=== PATIENT | male | born 1940 | race Caucasian/White ===

== ENCOUNTER 2020-06-25 14:06 | Observation (INO) | payer MEDICARE ==
[2020-06-25 16:41] VITALS: BMI 30.1
[2020-06-25] MEDS ORDERED: Pramipexole Di-HCl 0.25 MG TAB PO SCH (21:00)
[2020-06-25] MEDS ORDERED: Carbidopa/Levodopa 25-250 mg Tablet PO SCH ×2 (21:00→23:30)
[2020-06-25 21:43] LABS: #Eosinphils 0.2 thou/uL (0.0-0.7); #Lymphocytes 1.4 thou/uL (1.20-3.40); #Monocytes 0.5 thou/uL (0.11-0.59); #Neutrophils 3.6 thou/uL (1.40-6.50); %Basophils 0.6 % (0.0-1.0); %Eosinophils 3.7 % (0.0-10.0); %Lymphocytes 24.6 % (21.0-51.0); %Monocytes 9.3 % (0.0-10.0); %Neutrophils 61.8 % (42.0-75.0); Mean Corpuscular HGB CONC 33.8 g/dL (32.0-36.0); Mean Corpuscular Volume 94.6 fL (78.0-98.0); Mean Platelet Volume 7.6 fL (7.4-10.4); Platelet Count 181 thou/uL (130-400); RBC Distribution Width 11.9 % (11.5-14.5); Red Blood Cell (RBC) Count 4.39 mill/uL (4.70-6.10); White Blood Cell (WBC) Count 5.9 thou/uL (4.8-10.8)
[2020-06-25 22:03] LABS: Anion Gap 10 mmol/L (10-20); BUN (Urea Nitrogen) 26 mg/dL (8.4-25.7); Bilirubin, Total 0.3 mg/dL (0.2-1.2); Calc. Creatinine Clearance 111 mL/min (70-130); Calcium 8.6 mg/dL (7.8-10.44); Carbon Dioxide 23 mmol/L (23-31); Chloride 109 mmol/L (98-107); Estimated GFR-MDRD Greater than 90; Globulin 2.6 g/dL (2.4-3.5); Glucose 138 mg/dL (83-110); Potassium 3.9 mmol/L (3.5-5.1); Protein, Total 6.6 g/dL (5.8-8.1); Sodium 138 mmol/L (136-145)
[2020-06-25 22:04] LABS: ALT (SGPT) 11 U/L (8-55); AST (SGOT) 12 U/L (5-34); Alkaline Phosphatase 113 U/L (40-110); Magnesium 2.1 mg/dL (1.6-2.6)
[2020-06-25] MEDS ORDERED: Gabapentin 300 MG CAP PO SCH (22:30)
--- NOTE | 2020-06-25 23:34 | PDOC.HHP ---
Hospitalist HPI - History of Present Illness Syncope History of Present Illness: This is a 80-year-old male patient with a history of Parkinson's disease who presents as a transfer from [facility] on account of syncope. Patient was in his usual state of health when earlier in the day he got out of b ed and walked to his daughter and before he could notice was on the floor having syncopized. This was very brief, and witnessed and he got up almost immediately. He denied any associated chest pain, palpitation prior to the fall. He did note having had a similar incident about 2 weeks ago. Given these falls he presented to the ED at [facility] where he was evaluated. After his first syncope and event monitoring at home was placed on him however this was interrogated today without any abnormal or concerning arrhythmias noted. He had a head CT which showed no acute intracranial abnormality, only cerebral atrophy with small vessel ischemic white matter changes. Chest x-ray showed no acute cardiopulmonary events. CBC and BMP and Keppra, essential all within normal limits. His vital signs were also within normal limits. Given his recurrent syncope decision was made to have him observed and monitored he was sent here for further evaluation. On arrival, repeat vitals and labs were all within normal limits. Hospitalist ROS - Review of Systems Constitutional: denies: fever, sweats Cardiovascular: denies: chest pain, palpitations, orthopnea, paroxysmal noc. dyspnea Gastrointestinal: denies: nausea, vomiting, abdominal pain, diarrhea Genitourinary: denies: dysuria, frequency, incontinence, hematuria Musculoskeletal: denies: neck pain, shoulder pain, arm pain, back pain Neurological: denies: weakness, numbness, incoordination, change in speech, confusion Hospitalist History - Past Medical History Other Medical History: Parkinson's disease. - Past Surgical History Other Surgical History: None of significance - Social History Alcohol: reports: Occassional Living Situation: With Family - Exam General Appearance: awake alert Eye: PERRL, anicteric sclera ENT: normocephalic atraumatic, moist mucosa Neck: supple, no JVD Heart: RRR, no murmur, no gallops, no rubs, normal peripheral pulses Respiratory: no wheezes, no rales, no ronchi, no tachypnea Gastrointestinal: soft, non-tender, non-distended, normal bowel sounds Extremities: no cyanosis, no clubbing, no edema Skin: normal turgor Neurological: cranial nerve grossly intact, normal sensation to touch Musculoskeletal: normal tone, normal strength, no muscle wasting Psychiatric: A&O x 3 Hospitalist Results - Labs Result Diagrams: 06/25/20 21:17 06/26/20 08:10 Lab results: WBC 5.9 thou/uL (4.8-10.8) 06/25/20 21:17 Hgb 14.0 g/dL (14.0-18.0) 06/25/20 21:17 Hct 41.6 % (42.0-52.0) L 06/25/20 21:17 MCV 94.6 fL (78.0-98.0) 06/25/20 21:17 Plt Count 181 thou/uL (130-400) 06/25/20 21:17 Neutrophils % 61.8 % (42.0-75.0) 06/25/20 21:17 Sodium 138 mmol/L (136-145) 06/25/20 21:17 Potassium 3.9 mmol/L (3.5-5.1) 06/25/20 21:17 Chloride 109 mmol/L (98-107) H 06/25/20 21:17 Carbon Dioxide 23 mmol/L (23-31) 06/25/20 21:17 BUN 26 mg/dL (8.4-25.7) H 06/25/20 21:17 Creatinine 0.81 mg/dL (0.7-1.3) 06/25/20 21:17 Glucose 138 mg/dL (83-110) H 06/25/20 21:17 Calcium 8.6 mg/dL (7.8-10.44) 06/25/20 21:17 Total Bilirubin 0.3 mg/dL (0.2-1.2) 06/25/20 21:17 AST 12 U/L (5-34) 06/25/20 21:17 ALT 11 U/L (8-55) 06/25/20 21:17 Alkaline Phosphatase 113 U/L (40-110) H 06/25/20 21:17 Serum Total Protein 6.6 g/dL (5.8-8.1) 06/25/20 21:17 Albumin 4.0 g/dL (3.4-4.8) 06/25/20 21:17 Hospitalist H&P A/P - Plan Plan: This is a 80-year-old male patient with a history of Parkinson's disease presenting with recurrent syncope of unclear etiology. Recurrent syncope Etiology unclear May be related to orthostatic hypotensioncheck orthostatic vital signs. Also possibility of multisystem atrophy in the setting of Parkinson's disease We will monitor on telemetry overnight for abnormal rhythms. We will consider echocardiogram in a.m. Possible cardiology evaluation in a.m. Parkinson's disease Continue on carbidopa/levodopa Also on pramipexole Depression Continue duloxetine VT prophylaxisnone CODE STATUSfull code
[2020-06-26] MEDS ORDERED: DULoxetine 60 MG CAP PO SCH ×3 (00:15→21:00)
[2020-06-26 08:50] LABS: Anion Gap 13 mmol/L (10-20); BUN (Urea Nitrogen) 21 mg/dL (8.4-25.7); Calc. Creatinine Clearance 114 mL/min (70-130); Calcium 8.9 mg/dL (7.8-10.44); Carbon Dioxide 27 mmol/L (23-31); Chloride 106 mmol/L (98-107); Estimated GFR-MDRD Greater than 90; Glucose 104 mg/dL (83-110); Potassium 4.3 mmol/L (3.5-5.1); Sodium 142 mmol/L (136-145)
[2020-06-26] MEDS ORDERED: Losartan 25 MG TAB PO SCH (09:00)
[2020-06-26] MEDS ORDERED: Atorvastatin Calcium 20 MG TAB PO SCH (09:00)
[2020-06-26] MEDS ORDERED: Carbidopa/Levodopa 25-250 mg Tablet PO SCH ×2 (09:00→12:00)
[2020-06-26] MEDS ORDERED: Pramipexole Di-HCl 0.25 MG TAB PO SCH (09:00)
[2020-06-26] MEDS ORDERED: FLU VACC QS2020-21(65YR UP)/PF 240 MCG/0.7 ML SYRINGE IM ONE (09:00)
[2020-06-26] MEDS ORDERED: Gabapentin 300 MG CAP PO SCH (09:00)
[2020-06-26] MEDS: Fludrocortisone Acetate 0.1 MG TAB PO SCH (09:12)
--- NOTE | 2020-06-26 09:45 | PDOC.HOSPP ---
- Subjective Encounter Date: 06/26/20 (f/u syncope) Encounter Time: 09:44 Subjective: Pt admitted yesterday for syncope. He denies any prodromal sx. he denies any concerns today - states he is feelng well. He does note being off fludrocortisone for a few days and not taking it that often. He denies any cp/sob/n/v/abd pain. He sees Dr. Cooper as an outpatient. - Objective Vital Signs & Weight: Vital Signs (12 hours) Temp Pulse Resp BP Pulse Ox 06/26/20 07:40 97.5 F L 79 18 199/96 H 95 06/26/20 04:01 98.6 F 72 18 172/96 H 94 L Weight Weight 234 lb I&O: 06/25/20 06/26/20 06/27/20 06:59 06:59 06:59 Intake Total 140 Output Total 280 Balance -140 Result Diagrams: 06/25/20 21:17 06/26/20 08:10 EKG Reviewed by me: Yes (tele - sinus 70-80's) Hospitalist ROS - Medication Medications: Active Medications Generic Name Dose Route Start Last Admin Trade Name Freq PRN Reason Stop Dose Admin Atorvastatin Calcium 20 mg 06/26/20 09:00 06/26/20 09:12 Atorvastatin Calcium 20 Mg Tab PO 20 mg DAILY JAYCE Administration Carbidopa/Levodopa 1.5 tab 06/26/20 09:00 06/26/20 09:12 Carbidopa/Levodopa 25-250 Mg Tablet PO 1.5 tab QAM JAYCE Administration Fludrocortisone Acetate 0.1 mg 06/26/20 09:00 06/26/20 09:12 Fludrocortisone Acetate 0.1 Mg Tab PO 0.1 mg DAILY JAYCE Administration Gabapentin 600 mg 06/26/20 09:00 06/26/20 09:32 Gabapentin 300 Mg Cap PO 600 mg TID JAYCE Administration Losartan Potassium 100 mg 06/26/20 09:00 06/26/20 09:12 Losartan 25 Mg Tab PO 100 mg DAILY JAYCE Administration Pramipexole Dihydrochloride 0.25 mg 06/26/20 09:00 06/26/20 09:10 Pramipexole Di-Hcl 0.25 Mg Tab PO 0.25 mg BID JAYCE Administration - Exam General Appearance: NAD Heart: RRR, no murmur Respiratory: CTAB, no wheezes Gastrointestinal: soft, non-tender, non-distended, normal bowel sounds Extremities: no cyanosis, no clubbing, no edema Psychiatric: normal affect Hosp A/P (1) Syncope Code(s): R55 - SYNCOPE AND COLLAPSE Status: Acute (2) Orthostatic hypotension Code(s): I95.1 - ORTHOSTATIC HYPOTENSION Status: Chronic (3) Parkinsons disease Code(s): G20 - PARKINSON'S DISEASE Status: Chronic (4) Hypertension Code(s): I10 - ESSENTIAL (PRIMARY) HYPERTENSION Status: Chronic (5) Dyslipidemia Code(s): E78.5 - HYPERLIPIDEMIA, UNSPECIFIED Status: Chronic - Plan syncope - suspect orthostatic hypotension - recheck orthostatic VS this morning - cardiology consult as pt is on losartan at night and fludrocortisone in the morning - Neurology consult to eval for another explanation such as related to parkinsons disease HTN - elevated bp this morning - monitor, recheck VS Parkinsons disease - continue usual home meds Dyslipidemia - continue statin dvt prophy - ambulatory gi prophy - not indicated code status full reviewed plan of care with patient with his son on speaker phone (by patient choice), who demonstrate understanding and agree with plan. no questions or further needs at end of eval.
[2020-06-26 11:22] VITALS: TEMP 98.4
--- NOTE | 2020-06-26 12:41 | CON ---
DATE OF CONSULTATION: 06/26/2020 CONSULTING PHYSICIAN: Hospitalist Services. IMPRESSION: Parkinson disease with autonomic instability. PLAN: Restart Florinef 0.1 mg a day. The patient can be discharged to home. HISTORY OF PRESENT ILLNESS: Mr. Rabago is a 80-year-old man who was followed by Dr. Almanzar at [facility] for his Parkinson disease. He has had symptoms dating back about 5 years. He has also been treated for hypertension and is on losartan. He was noted to be orthostatic by Neurology a few months ago. He was started on Florinef. He was doing well until recently. He forgot to take his medicine with him on a trip and did not take his Florinef for more than a week. He has gotten up from a couch and was walking across the room when he suddenly got lightheaded and collapsed. He has had a similar episode in the past. He was admitted for evaluation. He had a CT scan of the brain done, which was normal. His lab work was in normal limits. He was noted to have a 70-mm drop in blood pressure with orthostatic measurements. PAST MEDICAL HISTORY: Hypertension, Parkinson's. ALLERGIES: NONE. SOCIAL HISTORY: No tobacco or alcohol abuse. FAMILY HISTORY: Noncontributory. MEDICATIONS: List was reviewed. REVIEW OF SYSTEMS: Ten-system review of systems is otherwise negative. PHYSICAL EXAMINATION: GENERAL: He is a well-nourished gentleman, lying in bed, in no distress. VITAL SIGNS: Reviewed. HEENT: Pupils equal and reactive. Conjunctivae clear. Mucous membranes moist. NECK: Supple. No lymphadenopathy. ABDOMEN: Soft and nontender. EXTREMITIES: No cyanosis or edema. SKIN: Clear. NEUROLOGIC: Alert and appropriate. His speech is fluent and clear. Cranial nerves were intact. Motor exam showed good strength bilaterally. No tremor was noted. His rapid alternating movements were quite smooth. He can walk independently. Sensation was intact to light touch. LABORATORY DATA: EKG shows a sinus rhythm. SUMMARY: This elderly man with Parkinson's and autonomic instability. He has been documented to have issues in the past and was treated with Florinef until he forgot to take his medication. I do not see any need for further workup. He can be discharged today. Job ID: [id number]
[2020-06-26 13:40] VITALS: BP 190/95
[2020-06-26] MEDS ORDERED: Potassium Chloride 20 MEQ TAB PO SCH (14:15)
[2020-06-26] MEDS ORDERED: Sodium Chloride 0.9% 500 ML IV SCH (14:15)
--- NOTE | 2020-06-26 14:57 | CON ---
DATE OF CONSULTATION: 06/26/2020 REASON FOR CONSULTATION: Syncopal episode. PRIMARY MUD ENGINEER: Quique Cooper MD HISTORY OF PRESENT ILLNESS: Mr. Blaine Rabago is a 80-year-old gentleman with history of Parkinson disease with orthostatic hypotension. The patient was out in his garage yesterday when he was opening up a refrigerator freezer door and then felt very weak and then lost consciousness promptly. He was sent to [facility] Emergency Room, then transferred here for evaluation and observation. The patient has been noted to have severe orthostatic hypotension during this admission as noted by Dr. Souza. PAST MEDICAL HISTORY: 1. Parkinson disease. 2. Orthostatic hypotension. 3. Hypertension. MEDICATIONS: At home: 1. Losartan 100 mg a day. 2. Atorvastatin 20 mg a day. 3. Carbidopa and levodopa. 4. Gabapentin. 5. Fludrocortisone, but he has not been taking that for at least a week. 6. Aspirin 81 mg a day. ALLERGIES: NONE KNOWN. SOCIAL HISTORY: Has a who is very supportive of him. She is in the room. Also, the son who was on the phone. PHYSICAL EXAMINATION: VITAL SIGNS: Blood pressure earlier was 199/96 at 7:40 a.m., later was 110/62 sitting and 99/58 standing. NECK: Veins normal. Carotid normal upstrokes. LUNGS: Clear. CARDIAC: Normal S1. Normal S2. ABDOMEN: Soft, nontender. EXTREMITIES: No clubbing or cyanosis. There is no edema. LABORATORY DATA: Echocardiogram is normal. The patient's monitor, which apparently showed no dysrhythmias. ASSESSMENT: 1. Orthostatic hypotension. 2. Parkinson disease. PLAN: 1. Give us normal saline bolus. 2. Reduce losartan to 50 mg a day. 3. Okay to be discharged home after the bolus. 4. Follow up with Dr. Cooper. Job ID: [id number]
--- NOTE | 2020-06-26 22:39 | DIS ---
DATE OF ADMISSION: 06/25/2020 DATE OF DISCHARGE: 06/26/2020 CONSULTANTS: 1. Dr. Tinsley of Cardiology. 2. Dr. Souza of Neurology. MEDICATIONS: Reconciled at discharge. Discontinue medication: Losartan 100 mg. New medication: Losartan 50 mg once daily. Medications to continue: 1. Aspirin 81 mg daily. 2. Atorvastatin 20 mg at bedtime. 3. Carbidopa/levodopa one tablet four times daily, 25-250 mg. 4. Cymbalta 60 mg daily. 5. Fludrocortisone 0.1 mg daily. 6. Gabapentin 600 mg t.i.d. 7. Pramipexole 0.25 mg b.i.d. FINAL DIAGNOSIS: Syncope secondary to orthostatic hypotension. SECONDARY DIAGNOSES: 1. Parkinson disease. 2. Hypertension. 3. Dyslipidemia. 4. Known history of orthostatic hypotension. HISTORY OF PRESENT ILLNESS: Mr. Rabago is a 80-year-old male with the above medical problems, who presented to [facility] secondary to passing out. The patient reports that he was standing in the garage, denies any prodrome of symptoms and went down to the floor. He denies any problems with ambulation with his medications. Please see history and physical for more details. HOSPITAL COURSE: The patient was monitored on telemetry and maintained a sinus rhythm with the rates in the 70s and 80s. Yesterday, his orthostatic blood pressures were positive, these were repeated today and remained positive. The patient does have known orthostatic hypotension, however, has not had problems with this in the past by his report. He is prescribed fludrocortisone and states that he does not take it very often and for certain has been off it over the past few days. He was evaluated by Cardiology with recommendation to decrease the losartan dose and continue the fludrocortisone. Followup will be needed with Dr. Cooper in the outpatient setting. He was also evaluated by Dr. Souza of Neurology, who recommended continuing the fludrocortisone and follow up with his outpatient neurologist. The patient is overall feeling well, does meet criteria for discharge to home. PHYSICAL EXAMINATION: Please see the note on chart. PERDOMO FINDINGS AND TEST RESULTS: CBC: 5.9, 14.0, 41.6, 181. Chemistry: 142, 4.3, 106, 27, 21, 0.79, 104. Total bilirubin 0.3, AST 12, ALT 11, alkaline phosphatase 113, total protein 6.6, albumin 4. Echocardiogram shows an EF of 55% to 60%, no evidence of MR, trace TR. I reviewed with patient this hospitalization, the importance of followup and return for care precautions. FOLLOWUP: Follow up with Dr. Cooper in the next few weeks to review this hospitalization, medication changes, blood pressure, and address any other health needs. Follow up with the outpatient neurologist as needed. Follow up with primary care also as needed. DIET: Heart healthy. ACTIVITY: As tolerated with caution due to the known orthostatic hypotension. CODE STATUS: Full. DISCHARGE DISPOSITION: Home. Total time coordinating discharge is 35 minutes. Job ID: [id number] MTDD
[2020-06-27] MEDS ORDERED: Losartan 25 MG TAB PO SCH (09:00)
== END 2020-06-26 16:21 | disposition home or self-care (01) ==
LOC: INTOOBSV 14:06 → 2NO 14:06
PROVIDERS: ADMIT Student in an Organized Health Care Education/Training Program; ATTEND Student in an Organized Health Care Education/Training Program
DX: I95.1 Orthostatic hypotension (principal); G20 Parkinson's disease; I10 Essential (primary) hypertension; E78.5 Hyperlipidemia, unspecified; F32.9 Major depressive disorder, single episode, unspecified; Z79.82 Long term (current) use of aspirin; Z79.899 Other long term (current) drug therapy
CPT/HCPCS: 80048; 80053; 83735; 85025; 93306; G0378 ×2; 36415

== ENCOUNTER 2020-10-24 20:15 | Emergency (ER) | payer MEDICARE ==
[2020-10-24] MEDS ORDERED: Morphine 4 MG/ML VIAL ONE (21:26)
--- NOTE | 2020-10-24 21:32 | CT ---
CT ABDOMEN AND PELVIS WITHOUT CONTRAST: Comparison: 01-03-17 History: Abdominal pain. Technique: Multiple contiguous axial images were obtained in a CT of the abdomen and pelvis without c ontrast. Sagittal and coronal reformats were performed. FINDINGS: There are nonobstructing calcifications in the bilateral kidneys measuring up to 10 mm on the left an d 7 mm on the right. No calcifications are seen in either ureter or within the urinary bladder. No hy dronephrosis is seen. There is an exophytic hypodensity emanating from the both kidneys which are sub centimeter in size and likely represents a small cysts. The liver, gallbladder, adrenal glands, splee n and pancreas are unremarkable although evaluation is limited without IV contrast. No free air, free fluid, or stranding changes are seen in the abdomen or pelvis. Scattered diverticul a are seen in the colon. The small bowel is normal in caliber. Atherosclerotic calcifications are seen in the aorta. No abdominal or pelvic lymph adenopathy are see n. Degenerative and post surgical changes are seen in the spine. There is effusion in the sacroiliac marisel nts. The visualized inferior thorax and abdominal wall soft tissues are unremarkable. IMPRESSION: 1. Bilateral nonobstructing kidney stones. 2. Bilateral renal cysts. POS: EAA
[2020-10-24 21:49] LABS: #Eosinphils 0.2 thou/uL (0.0-0.7); #Lymphocytes 1.4 thou/uL (1.20-3.40); #Monocytes 0.6 thou/uL (0.11-0.59); #Neutrophils 6.3 thou/uL (1.40-6.50); %Basophils 0.4 % (0.0-1.0); %Lymphocytes 16.3 % (21.0-51.0); %Monocytes 6.8 % (0.0-10.0); %Neutrophils 74.6 % (42.0-75.0); Hemoglobin 13.9 g/dL (14.0-18.0); Mean Corpuscular HGB CONC 34.6 g/dL (32.0-36.0); Mean Corpuscular Hemoglobin 33.3 pg (27.0-31.0); Mean Corpuscular Volume 96.2 fL (78.0-98.0); Mean Platelet Volume 6.9 fL (7.4-10.4); Platelet Count 204 thou/uL (130-400); RBC Distribution Width 11.8 % (11.5-14.5); Red Blood Cell (RBC) Count 4.15 mill/uL (4.70-6.10); White Blood Cell (WBC) Count 8.5 thou/uL (4.8-10.8)
[2020-10-24 22:09] LABS: ALT (SGPT) Less than 7 U/L (8-55); AST (SGOT) 23 U/L (5-34); Albumin 4.1 g/dL (3.4-4.8); Alkaline Phosphatase 106 U/L (40-110); Anion Gap 14 mmol/L (10-20); BUN (Urea Nitrogen) 24 mg/dL (8.4-25.7); Bilirubin, Total 0.3 mg/dL (0.2-1.2); CK (CPK) 78 U/L (30-200); Calc. Creatinine Clearance 0 mL/min (70-130); Calcium 9.2 mg/dL (7.8-10.44); Carbon Dioxide 26 mmol/L (23-31); Chloride 107 mmol/L (98-107); Globulin 2.9 g/dL (2.4-3.5); Glucose 115 mg/dL (83-110); Lipase 10 U/L (8-78); Potassium 4.5 mmol/L (3.5-5.1); Sodium 142 mmol/L (136-145)
[2020-10-24 23:26] LABS: Bilirubin Negative (Negative); Blood, Urine 3+ (Negative); Clarity Clear (Clear); Glucose, Urine (Dipstick) Normal (Negative); Ketone, Urine Negative (Negative); Leukocyte Negative Leu/uL (Negative); Nitrite Negative (Negative); Protein, Urine (Dipstick) Negative (Neg-Trace); RBC/HPF Greater than 50 HPF (0-3); Specific Gravity, Urine 1.021 (1.002-1.036); Squamous Epithelial None Seen HPF (0-3); Urobilinogen Normal mg/dL (Less than 2); WBC/HPF 0-3 HPF (0-3); pH, Urine 6.5 (5.0-9.0)
[2020-10-24 23:27] LABS: Bacteria/HPF Rare-Few HPF (None Seen)
[2020-10-24] MEDS ORDERED: hydrALAZINE 10 MG TAB PO SCH (23:45)
== END 2020-10-25 00:45 | disposition home or self-care (01) ==
LOC: ERS 20:15
DX: R31.9 Hematuria, unspecified (principal); I10 Essential (primary) hypertension; G20 Parkinson's disease; E78.00 Pure hypercholesterolemia, unspecified; Z79.82 Long term (current) use of aspirin; Z79.899 Other long term (current) drug therapy
CPT/HCPCS: 36415; 74176; 80053; 81003; 81015; 82550; 83690; 85025; 87086; J2270

== ENCOUNTER 2020-10-25 16:20 | Inpatient (IN) | payer MEDICARE ==
[2020-10-25 18:02] LABS: Bilirubin Negative (Negative); Blood, Urine Large (Negative); Glucose, Urine (Dipstick) 100 mg/dL (Negative); Ketone, Urine Negative (Negative); Leukocyte Negative (Negative); Nitrite Negative (Negative); Protein, Urine (Dipstick) > or equal to 300 mg/dL (Neg-Trace); Urobilinogen 0.2 mg/dL (Less than 2); pH, Urine 5.5 (5.0-9.0)
[2020-10-25 18:24] LABS: Clarity Turbid (Clear); Specific Gravity, Urine 1.023 (1.002-1.036)
[2020-10-25 18:25] LABS: Bacteria/HPF None Seen HPF (None Seen); RBC/HPF Greater than 50 HPF (0-3); Squamous Epithelial 0-3 HPF (0-3); WBC/HPF 0-3 HPF (0-3)
[2020-10-25] MEDS ORDERED: Morphine 4 MG/ML VIAL ONE (18:41)
[2020-10-25 18:59] LABS: #Eosinphils 0.2 thou/uL (0.0-0.7); #Lymphocytes 1.2 thou/uL (1.20-3.40); #Monocytes 0.7 thou/uL (0.11-0.59); #Neutrophils 6.2 thou/uL (1.40-6.50); %Basophils 0.4 % (0.0-1.0); %Lymphocytes 14.1 % (21.0-51.0); %Monocytes 8.8 % (0.0-10.0); %Neutrophils 74.8 % (42.0-75.0); Hemoglobin 13.5 g/dL (14.0-18.0); Mean Corpuscular HGB CONC 33.4 g/dL (32.0-36.0); Mean Corpuscular Hemoglobin 31.8 pg (27.0-31.0); Mean Corpuscular Volume 95.4 fL (78.0-98.0); Mean Platelet Volume 9.3 fL (7.4-10.4); Platelet Count 219 thou/uL (130-400); RBC Distribution Width 12.1 % (11.5-14.5); Red Blood Cell (RBC) Count 4.24 mill/uL (4.70-6.10); White Blood Cell (WBC) Count 8.4 thou/uL (4.8-10.8)
[2020-10-25 20:59] LABS: Albumin 4.2 g/dL (3.4-4.8)
[2020-10-25 21:02] LABS: Chloride 108 mmol/L (98-107); Potassium 4.7 mmol/L (3.5-5.1); Sodium 142 mmol/L (136-145)
[2020-10-25 21:03] LABS: Calcium 9.3 mg/dL (7.8-10.44)
[2020-10-25 21:04] LABS: Globulin 2.8 g/dL (2.4-3.5); Glucose 115 mg/dL (83-110)
[2020-10-25 21:05] LABS: Anion Gap 14 mmol/L (10-20); Carbon Dioxide 25 mmol/L (23-31)
[2020-10-25 21:06] LABS: Bilirubin, Total 0.4 mg/dL (0.2-1.2)
[2020-10-25 21:07] LABS: Alkaline Phosphatase 105 U/L (40-110); Calc. Creatinine Clearance 0 mL/min (70-130)
[2020-10-25 21:08] LABS: BUN (Urea Nitrogen) 22 mg/dL (8.4-25.7)
[2020-10-25 21:09] LABS: AST (SGOT) 21 U/L (5-34)
[2020-10-25 21:10] LABS: ALT (SGPT) Less than 7 U/L (8-55)
[2020-10-26 00:07] VITALS: BMI 31.6
[2020-10-26] MEDS ORDERED: Acetaminophen 650 MG Suppository PR PRN (01:11)
--- NOTE | 2020-10-26 01:35 | PDOC.HHP ---
Hospitalist HPI ED Course: ADMISSION DATE: 10/26/2020 TIME OF ASSESSMENT: 0100 PRIMARY CARE PHYSICIAN: Dr. Miranda CHIEF COMPLAINT: Urine retention and hematuria HPI: This is a 80-year-old gentleman who presents to the emergency department with complaints of Brown catheter does not seem to be draining properly. He had this placed yesterday here in the emergency department after presenting with urinary retention and hematuria. He apparently has been constipated for several days and was straining while having a bowel movement yesterday morning and noted that though he felt like emptying his bladder he was unable to urinate. He began to experience suprapubic discomfort with the inability to empty his bladder throughout the day which prompted him to seek medical attention. He called EMS and while waiting for them to arrive he was able to release some urine which provided some relief and noted multiple blood clots and what he describes as gelatinous bloody material. Patient states he does not follow with a urologist. He was set up to see 1 as an outpatient and had a Brown catheter placed. For his pain he was given morphine 4 mg IV. He had a CT of the abdomen and pelvis which demonstrated bilateral nonobstructing renal calculi and bilateral renal cysts without any evidence of bladder or prostate masses or obstruction. For that reason he was cleared to be discharged home. He returned today due to recurring symptoms. Reports having a significant amount of discomfort with irrigation being done in the emergency department however since her rate was decreased his discomfort has eased. The hematuria has started to her improve. He denies any complaints at this present time. He has had similar symptoms like this in the past after undergoing radical prostatectomy in 2004. He had been treated with radiation and chemotherapy followed by surgery. ED COURSE: Labs and in the emergency department showed a white cell count of 8.4, hemoglobin 13.5, hematocrit 40.5. Platelets 119. Neutrophils 74.8%. BUN 22, creatinine 0.82, GFR greater than 90, glucose 115, LFTs normal. Urinalysis was done showing red turbid appearing urine with 300 protein, 100 glucose, large blood with greater than 50 red blood cells. He was started on IV antibiotics with Levaquin 750 mg IV. He received 2 mg of morphine IV for his pain. Case was discussed with Dr. Cassidy who advised continuous bladder irrigation with plans to see the patient in the morning. Allergies/Adverse Reactions: Allergy/AdvReac Type Severity Reaction Status Date / Time No Known Allergies Allergy Verified 10/26/20 00:01 Home Medications: Medication Instructions Recorded Confirmed Type Atorvastatin Calcium [Lipitor] 40 mg PO QPM 05/10/16 10/26/20 History Carbidopa/Levodopa 1 tab PO QID 05/10/16 10/26/20 History [Carbidopa-Levodopa 25-250 Tab] Aspirin [Ecotrin Low Strength] 81 mg PO QPM 06/25/20 10/26/20 History DULoxetine [Cymbalta] 60 mg PO QPM 06/25/20 10/26/20 History Fludrocortisone Acetate 0.1 mg PO QAM 06/25/20 06/25/20 History Gabapentin 600 mg PO BID 06/25/20 10/26/20 History Pramipexole Di-HCl [Mirapex] 0.25 mg PO TID 06/25/20 10/26/20 History Losartan [Cozaar] 50 mg PO DAILY tab 06/26/20 Rx Past History: PAST MEDICAL HISTORY: 1. History of prostate cancer 2. Parkinson's disease 3. Spinal stenosis 4. Hypertension 5. Hyperlipidemia PAST SURGICAL HISTORY: 1. Radical prostatectomy 2. Back surgery 3. Pars plana vitrectomy and membrane peel, right eye SOCIAL HISTORY: Patient denies any tobacco use, alcohol consumption or drug use. Lives at home with his family. FAMILY HISTORY: Noncontributory Hospitalist Exam Vitals: Vital Signs (12 hours) Temp Pulse Resp BP Pulse Ox 10/25/20 23:31 98 F 82 16 154/96 H 96 Weight Weight 240 lb 2 oz General Appearance: NAD, awake alert Eye: PERRL, anicteric sclera ENT: normocephalic atraumatic, no oropharyngeal lesions Neck: supple, no lymphadenopathy Heart: RRR, no murmur, no gallops, no rubs, normal peripheral pulses Respiratory: CTAB, no wheezes, no rales, no ronchi, normal chest expansion Gastrointestinal: soft, non-tender, non-distended, normal bowel sounds Extremities: no edema Skin: normal turgor, no lesions, no rashes Neurological: cranial nerve grossly intact, normal sensation to touch Musculoskeletal: normal tone, normal strength, no muscle wasting Psychiatric: normal affect, normal behavior, A&O x 3 Hospitalist Results Result Diagrams: 10/25/20 18:48 10/25/20 20:37 Lab results: Laboratory Last Values WBC 8.4 thou/uL (4.8-10.8) 10/25/20 18:48 RBC 4.24 mill/uL (4.70-6.10) L 10/25/20 18:48 Hgb 13.5 g/dL (14.0-18.0) L 10/25/20 18:48 Hct 40.5 % (42.0-52.0) L 10/25/20 18:48 MCV 95.4 fL (78.0-98.0) 10/25/20 18:48 MCH 31.8 pg (27.0-31.0) H 10/25/20 18:48 MCHC 33.4 g/dL (32.0-36.0) 10/25/20 18:48 RDW 12.1 % (11.5-14.5) 10/25/20 18:48 Plt Count 219 thou/uL (130-400) 10/25/20 18:48 MPV 9.3 fL (7.4-10.4) 10/25/20 18:48 Neutrophils % 74.8 % (42.0-75.0) 10/25/20 18:48 Lymphocytes % 14.1 % (21.0-51.0) L 10/25/20 18:48 Monocytes % 8.8 % (0.0-10.0) 10/25/20 18:48 Eosinophils % 2.0 % (0.0-10.0) 10/25/20 18:48 Basophils % 0.4 % (0.0-1.0) 10/25/20 18:48 Neutrophils # 6.2 thou/uL (1.40-6.50) 10/25/20 18:48 Lymphocytes # 1.2 thou/uL (1.20-3.40) 10/25/20 18:48 Monocytes # 0.7 thou/uL (0.11-0.59) H 10/25/20 18:48 Eosinophils # 0.2 thou/uL (0.0-0.7) 10/25/20 18:48 Basophils # 0.0 thou/uL (0.0-0.2) 10/25/20 18:48 Sodium 142 mmol/L (136-145) 10/25/20 20:37 Potassium 4.7 mmol/L (3.5-5.1) 10/25/20 20:37 Chloride 108 mmol/L (98-107) H 10/25/20 20:37 Carbon Dioxide 25 mmol/L (23-31) 10/25/20 20:37 Anion Gap 14 mmol/L (10-20) 10/25/20 20:37 BUN 22 mg/dL (8.4-25.7) 10/25/20 20:37 Creatinine 0.82 mg/dL (0.7-1.3) 10/25/20 20:37 Estimated GFR (MDRD) Greater than 90 10/25/20 20:37 Glucose 115 mg/dL (83-110) H 10/25/20 20:37 Calcium 9.3 mg/dL (7.8-10.44) 10/25/20 20:37 Total Bilirubin 0.4 mg/dL (0.2-1.2) 10/25/20 20:37 AST 21 U/L (5-34) 10/25/20 20:37 ALT Less than 7 U/L (8-55) L 10/25/20 20:37 Alkaline Phosphatase 105 U/L (40-110) 10/25/20 20:37 Serum Total Protein 7.0 g/dL (5.8-8.1) 10/25/20 20:37 Albumin 4.2 g/dL (3.4-4.8) 10/25/20 20:37 Globulin 2.8 g/dL (2.4-3.5) 10/25/20 20:37 Albumin/Globulin Ratio 1.5 g/dL (1.2-2.2) 10/25/20 20:37 Urine Color Red (Yellow) A 10/25/20 Unknown Urine Clarity Turbid (Clear) A 10/25/20 Unknown Urine pH 5.5 (5.0-9.0) 10/25/20 Unknown Ur Specific [place] 1.023 (1.002-1.036) 10/25/20 Unknown Urine Protein > or equal to 300 mg/dL (Neg-Trace) A 10/25/20 Unknown Urine Glucose (UA) 100 mg/dL (Negative) A 10/25/20 Unknown Urine Ketones Negative mg/dL (Negative) 10/25/20 Unknown Urine Blood Large (Negative) A 10/25/20 Unknown Urine Nitrite Negative (Negative) 10/25/20 Unknown Urine Bilirubin Negative (Negative) 10/25/20 Unknown Urine Urobilinogen 0.2 mg/dL (Less than 2) 10/25/20 Unknown Ur Leukocyte Esterase Negative (Negative) 10/25/20 Unknown Urine RBC Greater than 50 HPF (0-3) A 10/25/20 Unknown Urine WBC 0-3 HPF (0-3) 10/25/20 Unknown Ur Squamous Epith Cells 0-3 HPF (0-3) 10/25/20 Unknown Urine Bacteria None Seen HPF (None Seen) 10/25/20 Unknown Hyaline Casts 0-3 LPF (0-3) 10/25/20 Unknown Hospitalist H&P A/P (1) Hematuria Code(s): R31.9 - HEMATURIA, UNSPECIFIED Status: Acute (2) Urine retention Code(s): R33.9 - RETENTION OF URINE, UNSPECIFIED Status: Acute (3) History of prostate cancer Code(s): Z85.46 - PERSONAL HISTORY OF MALIGNANT NEOPLASM OF PROSTATE Status: Chronic (4) Dyslipidemia Code(s): E78.5 - HYPERLIPIDEMIA, UNSPECIFIED Status: Chronic (5) Hypertension Code(s): I10 - ESSENTIAL (PRIMARY) HYPERTENSION Status: Chronic (6) Parkinsons disease Code(s): G20 - PARKINSON'S DISEASE Status: Chronic Plan: Urine retention with hematuria, s/p prostatectomy due to prostate cancer in [address] with continuous irrigation Pain resolved and hematuria improving Continue to monitor overnight Urology consult placed, pending review in the morning Patient NPO Coags ordered for the AM Hypertension Monitor BP Resume home meds once verified, as appropriate Hyperlipidemia Resume statin Parkinson's Disease Stable Resume home meds once doses verified GI prophylaxis with Famotidine DVT Prophylaxis with mechanical SCDs CODE STATUS FULL Case discussed with Dr. Shelton who agrees with plan as above.
[2020-10-26 06:09] LABS: #Eosinphils 0.3 thou/uL (0.0-0.7); #Lymphocytes 1.3 thou/uL (1.20-3.40); #Monocytes 0.7 thou/uL (0.11-0.59); #Neutrophils 3.6 thou/uL (1.40-6.50); %Basophils 0.3 % (0.0-1.0); %Eosinophils 4.6 % (0.0-10.0); %Lymphocytes 21.7 % (21.0-51.0); %Monocytes 11.8 % (0.0-10.0); %Neutrophils 61.6 % (42.0-75.0); Hemoglobin 13.1 g/dL (14.0-18.0); Mean Corpuscular HGB CONC 33.3 g/dL (32.0-36.0); Mean Corpuscular Hemoglobin 31.8 pg (27.0-31.0); Mean Corpuscular Volume 95.5 fL (78.0-98.0); Mean Platelet Volume 6.9 fL (7.4-10.4); Platelet Count 191 thou/uL (130-400); Red Blood Cell (RBC) Count 4.11 mill/uL (4.70-6.10); White Blood Cell (WBC) Count 5.9 thou/uL (4.8-10.8)
[2020-10-26 06:18] LABS: Prothrombin Time 13.6 sec (12.0-14.7)
[2020-10-26 06:19] LABS: PTT 34.2 sec (22.9-36.1)
[2020-10-26 06:28] LABS: Anion Gap 11 mmol/L (10-20); BUN (Urea Nitrogen) 21 mg/dL (8.4-25.7); Calc. Creatinine Clearance 121 mL/min (70-130); Calcium 8.6 mg/dL (7.8-10.44); Carbon Dioxide 27 mmol/L (23-31); Chloride 108 mmol/L (98-107); Glucose 110 mg/dL (83-110); Potassium 3.7 mmol/L (3.5-5.1); Sodium 142 mmol/L (136-145)
[2020-10-26] MEDS ORDERED: hydrALAZINE 20 MG/ML VIAL SLOW IVP PRN (08:32)
[2020-10-26] MEDS: Gabapentin 300 MG CAP PO SCH ×2 (09:00→20:50)
[2020-10-26] MEDS: Famotidine 20 MG TAB PO SCH ×2 (09:00→20:50)
[2020-10-26] MEDS: Pramipexole Di-HCl 0.25 MG TAB PO SCH ×3 (09:00→20:55)
[2020-10-26] MEDS: Carbidopa/Levodopa 25-250 mg Tablet PO SCH ×4 (09:00→20:50)
[2020-10-26] MEDS: Acetaminophen 325 MG TAB PO PRN ×2 (13:28→22:14)
[2020-10-26] MEDS: Hyoscyamine Sulfate SL 0.125 mg Tablet SL SCH ×2 (13:29→17:28)
--- NOTE | 2020-10-26 13:45 | CON ---
DATE OF CONSULTATION: 10/26/2020 CHIEF COMPLAINT: 1. Gross hematuria. 2. Prostate cancer, status post radiation therapy. 3. Possible urinary retention. 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 He was ultimately discharged from the emergency department. The patient returned to the emergency department in the evening hours of 10/25/2020 with complaint of his Brown catheter not draining properly. He did have gross hematuria and apparent clot retention associated with the catheter. The patient was then admitted. The patient underwent initial evaluation, was ultimately admitted to the hospital and placed on continuous bladder irrigation. PAST MEDICAL HISTORY: 1. Prostate cancer, status post radical prostatectomy performed in [place], [place], with apparent residual prostatic apex. 2. Radiation therapy of the prostate gland. 3. Parkinson disease. 4. Spinal stenosis. 5. Hypertension. 6. Hyperlipidemia. PAST SURGICAL HISTORY: 1. Radical prostatectomy. 2. Back surgery. 3. Pars plana vitrectomy and membrane peel, right eye. SOCIAL HISTORY: The patient is a nonsmoker and does not drink. He lives at home with his family. REVIEW OF SYSTEMS: GENERAL: No complaints of systemic difficulties. HEAD, EYES, EARS, NOSE, AND THROAT: The patient has had some eye surgery in the past. HEART: No history of coronary artery disease or implants. No history of stents or pacemaker. PULMONARY: Negative. No upper respiratory symptoms. GASTROINTESTINAL: The patient does have complaint of developing gross hematuria after bowel movements. Reports having to strain sometimes in order to have a bowel movement. NEUROLOGIC: No complaints other than his known Parkinson disease. PHYSICAL EXAMINATION: GENERAL: This is a pleasant, adult white male, evaluated on the oncology floor for his hematuria, has a 3-way Brown catheter in place, 20-Korean, which is draining clear urine on saline CBI at a reasonable rate. The patient reports that he had gross hematuria prior to placement of the catheter. The catheter secured to his left leg using a StatLock device. HEAD, EYES, EARS, NOSE, AND THROAT: Extraocular movements are intact. Sclerae anicteric. NECK: Supple. LUNGS: Clear to auscultation bilaterally. CARDIAC: Regular rate and rhythm. ABDOMEN: Soft, moderately obese, and nontender. He is moderately distended today. GENITOURINARY: Brown catheter is in place. The patient has bilateral testicular atrophy. There is no evidence of inguinal canal hernia. The 3-way Brown catheter is draining what appears to be straight normal saline on irrigation. Digital rectal examination is performed, finds the rectum with essentially no rectal tone remaining. There are no palpable masses. LABORATORY STUDIES: The patient's white count is 5900, down from 8400 yesterday in the ER. He has no evidence of current left shift. Hemoglobin is 13.1 with hematocrit of 39.2, down from 13.5 and 40.5 yesterday. The patient's PSA when last tested here in 2017 was undetectable at below the SA limit of 0.2 ng/mL. ASSESSMENT: 1. 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 The patient would have had a relatively high dose in the area of the urinary sphincter and probably has radiation cystitis roughly in the area of immediate treatment. I recommended placement of the 3-way Brown catheter last night and irrigation. The patient has improved significantly. At the present time, I recommend titrating down on his irrigation and seeing if we are able to do a voiding trial in hospital. With respect to the hematuria, I would recommend suspending the use of the baby aspirin daily. 2. Constipation history. The patient reports he has frequent constipation. I would recommend using MiraLAX daily. He can titrate the dose, usually a teaspoon to 2 or 3 teaspoons is adequate for adequate bowel movement. A Dulcolax suppository may be used if there is constipation going on for more than a day or two. The patient has very poor rectal tone and also very poor urinary sphincter tone by self report and probably as far as continence, his only hope would be a suburethral sling or an artificial urinary sphincter. I discussed with the patient referral to appropriate experts in the field for that. 3. Cancer, controlled at present time. No recent PSA testing has been performed. The patient is followed by Dr. Miranda, who probably has a long record of PSA test and will defer that evaluation to follow up. TIME SPENT WITH PATIENT: Over 55 minutes of initial consultation, evaluation, and assessment time was spent in assessment of this patient today. Job ID: [id number]
--- NOTE | 2020-10-26 14:55 | PDOC.HOSPP ---
- Subjective Encounter Date: 10/26/20 Encounter Time: 14:53 Subjective: This is a very pleasant 80-year-old who is hospitalized following acute onset of urinary retention and hematuria. His past medical history includes prostate cancer with prior radical prostatectomy and who is actually in remission at this time. He follows closely with urology on outpatient basis. He presented to the hospital due to acute urinary retention. He reports that this usually happens whenever he is severely constipated. His last bowel movement he thinks was a few days ago. At any rate he initially was evaluated in the emergency room and discharged home but he presented to the hospital and was then readmitted due to worsening of his condition. He was evaluated here by urology who recommended continuous bladder irrigation. Today when I visited the patient's urine appears to have cleared up for the most part. His main concern right now appears to be constipation. I will went ahead and order for some laxatives. Will defer to urology about voiding trial. - Objective Vital Signs & Weight: Vital Signs (12 hours) Temp Pulse Resp BP Pulse Ox 10/26/20 12:00 98.5 F 79 18 214/105 H 96 10/26/20 10:49 134/96 H 10/26/20 07:19 97.6 F 77 16 206/104 H 97 Weight Weight 240 lb 2 oz I&O: 10/25/20 10/26/20 10/27/20 06:59 06:59 06:59 Output Total 2100 Balance -2100 Result Diagrams: 10/26/20 05:44 10/26/20 05:44 Radiology Reviewed by me: Yes EKG Reviewed by me: Yes Hospitalist ROS - Review of Systems Constitutional: reports: weakness, malaise Genitourinary: reports: dysuria, hematuria, retention Neurological: reports: weakness - Medication Medications: Active Medications Generic Name Dose Route Start Last Admin Trade Name Freq PRN Reason Stop Dose Admin Acetaminophen 650 mg 10/26/20 01:11 10/26/20 13:28 Acetaminophen 325 Mg Tab PO 650 mg Q4H PRN Administration Headache/Fever/Mild Pain (1-3) Carbidopa/Levodopa 1 tab 10/26/20 09:00 10/26/20 13:29 Carbidopa/Levodopa 25-250 Mg Tablet PO 1 tab QID JYACE Administration Famotidine 20 mg 10/26/20 09:00 10/26/20 09:00 Famotidine 20 Mg Tab PO Not Given BID JAYCE Gabapentin 600 mg 10/26/20 09:00 10/26/20 09:00 Gabapentin 300 Mg Cap PO Not Given BID JAYCE Hydralazine HCl 10 mg 10/26/20 08:32 10/26/20 12:47 Hydralazine 20 Mg/Ml Vial SLOW IVP 10 mg Q4H PRN Administration Hypertension Hyoscyamine Sulfate 0.125 mg 10/26/20 12:00 10/26/20 13:29 Hyoscyamine Sulfate Sl 0.125 Mg Tablet SL 0.125 mg Q6HR JAYCE Administration Pramipexole Dihydrochloride 0.25 mg 10/26/20 09:00 10/26/20 09:00 Pramipexole Di-Hcl 0.25 Mg Tab PO Not Given TID JAYCE Sodium Chloride 10 ml 10/26/20 01:11 10/26/20 12:49 Flush - Normal Saline 10 Ml Syringe IVF 10 ml Q12HR PRN Administration Saline Flush Hospitalist Exam Vitals: Vital Signs (12 hours) Temp Pulse Resp BP Pulse Ox 10/26/20 12:00 98.5 F 79 18 214/105 H 96 10/26/20 10:49 134/96 H 10/26/20 07:19 97.6 F 77 16 206/104 H 97 Weight Weight 240 lb 2 oz General Appearance: NAD, awake alert Eye: PERRL, anicteric sclera ENT: normocephalic atraumatic, no oropharyngeal lesions Neck: supple, symmetric, no JVD Heart: RRR, no murmur, no gallops, no rubs, normal peripheral pulses Respiratory: CTAB, no wheezes, no rales, no ronchi, normal chest expansion Gastrointestinal: soft, non-tender, non-distended Neurological: cranial nerve grossly intact, normal sensation to touch Musculoskeletal: normal tone, normal strength Psychiatric: normal affect, normal behavior, A&O x 3 Hosp A/P (1) Hematuria Code(s): R31.9 - HEMATURIA, UNSPECIFIED Status: Acute (2) Urine retention Code(s): R33.9 - RETENTION OF URINE, UNSPECIFIED Status: Acute (3) History of prostate cancer Code(s): Z85.46 - PERSONAL HISTORY OF MALIGNANT NEOPLASM OF PROSTATE Status: Chronic (4) Hypertension Code(s): I10 - ESSENTIAL (PRIMARY) HYPERTENSION Status: Chronic (5) Parkinsons disease Code(s): G20 - PARKINSON'S DISEASE Status: Chronic - Plan old records reviewed/req, plan discussed w/ family, canales catheter, PT/OT #1. Acute urinary retention The patient currently has Canales catheter in place. This is draining pretty cl ear urine. Urology plans to do voiding trial while he is hospitalized. I will defer this to them. 2. Hematuria. This appears to have cleared up. 3. History of prostate cancer. He appears to be in remission. 4. Uncontrolled hypertension. We will attempt to obtain his home medications. We need to control his blood pressure.
[2020-10-26] MEDS ORDERED: traMADol HCl 50 MG TAB PO PRN (15:25)
[2020-10-26] MEDS: DULoxetine 60 MG CAP PO SCH (17:28)
[2020-10-26] MEDS: Atorvastatin Calcium 40 MG TAB PO SCH (20:52)
[2020-10-27] MEDS: Hyoscyamine Sulfate SL 0.125 mg Tablet SL SCH ×4 (00:35→17:17)
[2020-10-27] MEDS ORDERED: Carvedilol 6.25 MG TAB PO SCH ×2 (08:00→17:00)
[2020-10-27] MEDS ORDERED: Carvedilol 25 MG TAB PO SCH (08:45)
[2020-10-27] MEDS ORDERED: Amlodipine 10 MG TAB PO SCH ×2 (09:00→10:45)
[2020-10-27] MEDS: Pramipexole Di-HCl 0.25 MG TAB PO SCH ×3 (09:12→20:27)
[2020-10-27] MEDS: Carbidopa/Levodopa 25-250 mg Tablet PO SCH ×4 (09:12→20:25)
[2020-10-27] MEDS: Gabapentin 300 MG CAP PO SCH ×2 (09:13→20:27)
[2020-10-27] MEDS: Famotidine 20 MG TAB PO SCH ×2 (09:13→20:26)
--- NOTE | 2020-10-27 14:38 | CT ---
CT HEAD WITHOUT CONTRAST: Indications: Stroke symptoms. Side of deficit is not specified. FINDINGS: Mild cortical volume loss. Ventricles have normal size and position. There is no evidence of intracranial hemorrhage, mass, or infarct. The paranasal sinuses are clear. There is a subcutaneous nodule overlying the left frontal bone suggesting an epidural inclusion cyst or similar thermal lesion measuring in the 1.0 cm range. IMPRESSION: No acute abnormality identified. POS: AGW
--- NOTE | 2020-10-27 15:39 | PDOC.HOSPP ---
- Subjective Encounter Date: 10/27/20 Encounter Time: 15:34 Subjective: Patient was seen and evaluated today at the bedside. He was lightheaded and dizzy. A quick review of his vital signs showed that he was very hypotensive. He was previously very hypertensive with a systolic blood pressure around 214. He reports that he was taking off of his blood pressure medicine a couple years ago but he does not know the reason why. He does not check his blood pressures at home. He follows up with a operational intelligence officer and recently saw his operational intelligence officer about a month ago he says. However the patient appears to have some cognition issues and I suspect he may have an underlying dementia. He was given Coreg and I believe amlodipine. We gave him a bolus of 8000 cc normal saline and his blood pressure improved promptly and his mentation also improved. I went ahead and consulted the patient's operational intelligence officer at his request. The patient otherwise seems to be back to his baseline. I called and spoke to the patient's son and updated him this morning. - Objective Vital Signs & Weight: Vital Signs (12 hours) Temp Pulse Resp BP BP Pulse Ox 10/27/20 12:00 97.9 F 67 20 125/62 92 L 10/27/20 11:32 77 198/98 H 10/27/20 09:12 77 198/98 H 10/27/20 08:00 98.4 F 78 16 198/98 H 93 L 10/27/20 03:57 97.4 F L 77 16 190/93 H 94 L Weight Weight 240 lb 3.2 oz I&O: 10/26/20 10/27/20 10/28/20 06:59 06:59 06:59 Output Total 2100 1500 350 Balance -2100 -1500 -350 Result Diagrams: 10/26/20 05:44 10/26/20 05:44 Radiology Reviewed by me: Yes EKG Reviewed by me: Yes Hospitalist ROS - Review of Systems ROS unobtainable: due to mental status Constitutional: reports: weakness, malaise Gastrointestinal: reports: nausea - Medication Medications: Active Medications Generic Name Dose Route Start Last Admin Trade Name Freq PRN Reason Stop Dose Admin Acetaminophen 650 mg 10/26/20 01:11 10/26/20 22:14 Acetaminophen 325 Mg Tab PO 650 mg Q4H PRN Administration Headache/Fever/Mild Pain (1-3) Atorvastatin Calcium 40 mg 10/26/20 21:00 10/26/20 20:52 Atorvastatin Calcium 40 Mg Tab PO Not Given QPM JAYCE Carbidopa/Levodopa 1 tab 10/26/20 09:00 10/27/20 13:56 Carbidopa/Levodopa 25-250 Mg Tablet PO 1 tab QID JAYCE Administration Duloxetine HCl 60 mg 10/26/20 17:00 10/26/20 17:28 Duloxetine 60 Mg Cap PO 60 mg QPM-WM JAYCE Administration Famotidine 20 mg 10/26/20 09:00 10/27/20 09:13 Famotidine 20 Mg Tab PO 20 mg BID JAYCE Administration Gabapentin 600 mg 10/26/20 09:00 10/27/20 09:13 Gabapentin 300 Mg Cap PO 600 mg BID JAYCE Administration Hydralazine HCl 10 mg 10/26/20 08:32 10/26/20 12:47 Hydralazine 20 Mg/Ml Vial SLOW IVP 10 mg Q4H PRN Administration Hypertension Hyoscyamine Sulfate 0.125 mg 10/26/20 12:00 10/27/20 13:56 Hyoscyamine Sulfate Sl 0.125 Mg Tablet SL 0.125 mg Q6HR JAYCE Administration Pramipexole Dihydrochloride 0.25 mg 10/26/20 09:00 10/27/20 13:55 Pramipexole Di-Hcl 0.25 Mg Tab PO 0.25 mg TID JAYCE Administration Sodium Chloride 10 ml 10/26/20 01:11 10/26/20 12:49 Flush - Normal Saline 10 Ml Syringe IVF 10 ml Q12HR PRN Administration Saline Flush Hospitalist Exam Vitals: Vital Signs (12 hours) Temp Pulse Resp BP BP Pulse Ox 10/27/20 12:00 97.9 F 67 20 125/62 92 L 10/27/20 11:32 77 198/98 H 10/27/20 09:12 77 198/98 H 10/27/20 08:00 98.4 F 78 16 198/98 H 93 L 10/27/20 03:57 97.4 F L 77 16 190/93 H 94 L Weight Weight 240 lb 3.2 oz General Appearance: NAD, awake alert, ill appearing Eye: PERRL, anicteric sclera ENT: normocephalic atraumatic, no oropharyngeal lesions Neck: supple, symmetric, no JVD, no thyromegaly, no lymphadenopathy Heart: RRR, no murmur, no gallops, no rubs, normal peripheral pulses Respiratory: CTAB, no wheezes, no rales, no ronchi, normal chest expansion Gastrointestinal: soft, non-tender, non-distended Neurological: cranial nerve grossly intact Psychiatric: normal affect, normal behavior Hosp A/P (1) Hematuria Code(s): R31.9 - HEMATURIA, UNSPECIFIED Status: Acute (2) Urine retention Code(s): R33.9 - RETENTION OF URINE, UNSPECIFIED Status: Acute (3) History of prostate cancer Code(s): Z85.46 - PERSONAL HISTORY OF MALIGNANT NEOPLASM OF PROSTATE Status: Chronic (4) Hypertension Code(s): I10 - ESSENTIAL (PRIMARY) HYPERTENSION Status: Chronic Qualifiers: Hypertension type: essential hypertension Qualified Code(s): I10 - Essential (primary) hypertension (5) Parkinsons disease Code(s): G20 - PARKINSON'S DISEASE Status: Chronic - Plan #1. Acute urinary retention The patient currently has Brown catheter in place. This is draining pretty clear urine. Urology plans to do voiding trial while he is hospitalized. I will defer this to them. 2. Hematuria. This appears to have cleared up. 3. History of prostate cancer. He appears to be in remission. 4. Uncontrolled hypertension. We will attempt to obtain his home medications. We need to control his blood pressure. 10/27/20. He became hypotensive earlier today. Was given some IV fluids and he improved.
[2020-10-27] MEDS: DULoxetine 60 MG CAP PO SCH (17:17)
[2020-10-27] MEDS: Carvedilol 3.125 MG TAB PO SCH (17:21)
--- NOTE | 2020-10-27 18:32 | EKG ---
Test Reason : Blood Pressure : / mmHG Vent. Rate : 071 BPM Atrial Rate : 071 BPM P-R Int : 234 ms QRS Dur : 080 ms QT Int : 424 ms P-R-T Axes : 098 -20 003 degrees QTc Int : 460 ms Sinus rhythm with 1st degree A-V block Otherwise normal ECG No previous ECGs available Confirmed by STEPHANE MCKEE, DR. Weems ([id number]) on 10/27/2020 6:32:20 PM Referred By: DOM Confirmed By:DR. Dank CALDERÓN MD
--- NOTE | 2020-10-27 18:50 | CON ---
DATE OF CONSULTATION: 10/27/2020 CHIEF COMPLAINT: 1. Gross hematuria. 2. History of prostate cancer, status post radical prostatectomy and subsequent followup external beam radiation therapy. 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 The patient was admitted to the hospital for management and has been on continuous bladder irrigation since then. The patient had general clearing of his urine yesterday and today has redeveloped gross hematuria episode in his back on continuous bladder irrigation. Again, he did have an interval bowel movement and by his son's report, had difficulties with blood pressure. PHYSICAL EXAMINATION: VITAL SIGNS: The patient's blood pressure has been elevated today at 198/98. He is being managed by the hospitalist for blood pressure control. He did have improvement of his blood pressure to 125/62 at around noontime today. The patient's current temperature is 97.9, pulse 67, respiratory rate 20, and O2 saturation on room air is 92%. GENERAL: This is a pleasant, awake, and alert white male, in no apparent distress. He is comfortable and is watching movie on his laptop computer. LUNGS: Clear bilaterally. CARDIAC: Regular rate and rhythm. ABDOMEN: Soft and nontender. GENITOURINARY: Indwelling Brown catheter is in place, this is 20-Maltese and has a CBI catheter, using saline as irrigant. The patient has general clearing of the gross hematuria observed earlier and his urine is down to a pink color at the present time. The patient reports an interval bowel movement. LABORATORY STUDIES: No new hematologic profile today and no new chemistries for today. Microbiology cultures, urine culture via Brown catheter is negative at 48 hours. ASSESSMENT AND PLAN: 1. Gross hematuria with recurrence. The patient will remain on CBI overnight tonight. He has general clearing of his urine. In the morning tomorrow, we may consider a voiding trial with plan to get his catheter out altogether. This hematuria is undoubtedly due to radiation cystitis given the oral history of his radiation treatment after prostate cancer treatment by radical prostatectomy. 2. Concerns for stricture. The patient did have history of retention. It is possible he may require intermittent catheterization as a method of bladder drainage since there was a retention history at presentation. 3. ID concerns. The patient's urine culture is negative at 48 hours. 4. Constipation. The patient had an interval bowel movement. 5. Hypertension. The patient did have quite substantial hypertension earlier today, which could be related to constipation as this was prior to his bowel movement. It could also be related to bladder spasms related to the Brown catheter. The patient did report some urgency symptoms yesterday. As we are planning a voiding trial tomorrow, I am not going to add any additional bladder spasm medications to his regimen at this point. Over 35 minutes of consultation, coordination of care time was spent discussing the patient's care with the patient's son as well as the patient himself, also with staff. TIME SPENT: Over 35 minutes of consultation time was spent today. Job ID: [id number]
--- NOTE | 2020-10-27 18:55 | CON ---
DATE OF CONSULTATION: REASON FOR CONSULTATION: Labile hypertension and hypotension. PRIMARY CORRECTIONAL FACILITY PSYCHIATRIST: Dr. Quique Cooper. HISTORY OF PRESENT ILLNESS: Mr. Rabago is a very pleasant 80-year-old gentleman with history of prostate cancer and hematuria. While he has been here, he has been having problems with very labile blood pressure. This has also been a problem for him in the past. In the past, the patient has had hypotension on losartan 100 mg a day. He is reduced to 50 mg a day, but despite that he still has some orthostatic hypotension. He was seen in the office on 10/07/2020. At that time, the losartan was stopped. His other medicines were Prozac, carbidopa/levodopa, Motrin, and gabapentin. REVIEW OF SYSTEMS: CONSTITUTIONAL: No significant weight gain or loss. VISION: No changes. HEARING: No changes. PULMONARY: No cough or wheezing. GASTROINTESTINAL: No nausea, vomiting, or diarrhea. EXTREMITIES: Eydk-of-[id number] peripheral edema. The patient had extremely labile blood pressure here. He had a blood pressure of 198/98, also 199/119 is recorded, although that diastolic pressure seems unlikely. The patient was given carvedilol 12.5 mg and amlodipine 10 mg, but became hypotensive and required intravenous fluid. It looks like he was also given carvedilol 25 mg one time. The patient does eventually become hypotensive and had received fluid. ASSESSMENT: Labile hypertension with hypotension, blood pressure now 125/62. PLAN: Continue amlodipine 2.5 mg a day. See how he does on that. Dr. Cooper will check tomorrow morning. He does have significant edema, but such a low-dose amlodipine hopefully will not worsen the edema. Job ID: [id number]
[2020-10-27] MEDS: Atorvastatin Calcium 40 MG TAB PO SCH (20:27)
[2020-10-28] MEDS: Hyoscyamine Sulfate SL 0.125 mg Tablet SL SCH ×4 (00:30→17:08)
[2020-10-28] MEDS: Carvedilol 3.125 MG TAB PO SCH ×2 (09:41→17:09)
[2020-10-28] MEDS: Famotidine 20 MG TAB PO SCH ×2 (09:42→20:59)
[2020-10-28] MEDS: Pramipexole Di-HCl 0.25 MG TAB PO SCH ×3 (09:42→20:59)
[2020-10-28] MEDS: Gabapentin 300 MG CAP PO SCH ×2 (09:42→20:59)
[2020-10-28] MEDS: Carbidopa/Levodopa 25-250 mg Tablet PO SCH ×4 (09:42→20:59)
[2020-10-28] MEDS: Amlodipine 10 MG TAB PO SCH (09:43)
--- NOTE | 2020-10-28 15:39 | PDOC.DS.DS ---
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 He apparently was passing out clots. He does follow-up with the urologist on outpatient basis. At any rate he was brought here and in the emergency room the urologist recommended the patient be placed on continuous bladder irrigation. Eventually his hematuria cleared up really nice. The patient during the stay had issues with blood pressure control. Reportedly he was on losartan at home but this was taken off and he did not know the reason why. His vital signs here showed a blood pressure over 200 systolic. We attempted to control this with Coreg unfortunately blood pressure dropped. He was given 1000 cc normal saline bolus with prompt improvement in his blood pressure. He was seen briefly here by his ad trafficker who recommended a low dose of amlodipine. The patient otherwise is doing well. He is clinically stable for discharge home and can discharge today after his ad trafficker sees him. Resuscitation Status: 10/26/20 01:11 Resuscitation Status Routine Co-Sign Provider: Resuscitation Status: FULL: Full Resuscitation Lab Results: 10/26/20 05:44 10/26/20 05:44 Microbiology - Entire Visit 10/25/20 Unknown Urine canales catheter Urine Culture - Final NO GROWTH AT 48 HOURS Vitals: Vital Signs (12 hours) Temp Pulse Resp BP BP Pulse Ox 10/28/20 09:43 71 166/79 H 10/28/20 08:00 98.0 F 71 18 156/81 H 94 L 10/28/20 04:00 70 140/79 Weight Weight 240 lb 3.2 oz Physical Exam: The patient was seen and examined on the day of discharge. General Appearance: NAD Eye: PERRL, anicteric sclera ENT: normocephalic atraumatic, no oropharyngeal lesions Neck: supple, symmetric, no JVD, no thyromegaly Respiratory: CTAB, no wheezes, no rales, no ronchi Cardiovascular: RRR, no murmur, no gallops, no rubs Gastrointestinal: soft, non-tender, non-distended, normal bowel sounds Neurological: cranial nerve grossly intact, normal sensation to touch PSYCH: normal affect, normal behavior, A&O x 3 Problem (1) Hematuria Code(s): R31.9 - HEMATURIA, UNSPECIFIED Status: Acute (2) Urine retention Code(s): R33.9 - RETENTION OF URINE, UNSPECIFIED Status: Acute (3) History of prostate cancer Code(s): Z85.46 - PERSONAL HISTORY OF MALIGNANT NEOPLASM OF PROSTATE Status: Chronic (4) Hypertension Code(s): I10 - ESSENTIAL (PRIMARY) HYPERTENSION Status: Chronic Qualifiers: Hypertension type: essential hypertension Qualified Code(s): I10 - Essential (primary) hypertension (5) Parkinsons disease Code(s): G20 - PARKINSON'S DISEASE Status: Chronic Time Spent in discharge related activities (mins): 30 Plan Prescriptions: Amlodipine Besylate [amLODIPine Besylate] 2.5 mg PO DAILY #30 tablet Home Medications: Medication Instructions Recorded Confirmed Type Atorvastatin Calcium [Lipitor] 20 mg PO QPM 05/10/16 10/26/20 History Carbidopa/Levodopa 1 tab PO QID 05/10/16 10/26/20 History [Carbidopa-Levodopa 25-250 Tab] DULoxetine [Cymbalta] 60 mg PO QPM 06/25/20 10/26/20 History Fludrocortisone Acetate 0.1 mg PO QAM 06/25/20 10/26/20 History Gabapentin 600 mg PO TID 06/25/20 10/26/20 History Pramipexole Di-HCl [Mirapex] 0.25 mg PO TID 06/25/20 10/26/20 History Amlodipine Besylate [amLODIPine 2.5 mg PO DAILY #30 tablet 10/28/20 Rx Besylate] Allergies: No Known Allergies Allergy (Verified 10/26/20 00:01) Activity:: Activity as Tolerated Nourishment:: Heart Healthy Diet Referrals: Brock Miranda MD [Primary Care Provider] - Disposition: HOME Quality CORE MEASURES:: N/A
--- NOTE | 2020-10-28 16:55 | CON ---
DATE OF CONSULTATION: 10/28/2020 Consultation and progress note CHIEF COMPLAINT: 1. Gross hematuria. 2. History of prostate cancer, status post radical prostatectomy followed by external beam radiation therapy. 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 He was discharged with a Brown catheter and later returned in the evening hours of 10/25/2020 with complaint of blood in his Brown catheter and improper drainage. The patient was subsequently admitted to the hospital for management, has been on continuous bladder irrigation since then. The patient had initial clearing of his gross hematuria, but redeveloped gross hematuria day before yesterday and was then kept on continuous bladder irrigation, which remained quite pink yesterday. The patient today has essentially clear urine with the faintest pink coloration and we elected to proceed with a voiding trial today. PHYSICAL EXAMINATION: VITAL SIGNS: The patient's blood pressure today has improved from yesterday, currently 166/79. Pulse 71, respirations 18. HEAD, EYES, EARS, NOSE, AND THROAT: Extraocular movements are intact. Sclerae anicteric. Oropharynx is clear. NECK: Supple. LUNGS: Clear to auscultation bilaterally. CARDIAC: Regular rate and rhythm without murmur or gallop. ABDOMEN: Soft, obese, and nontender. GENITOURINARY: Indwelling three-way Brown catheter is in place. Today, we performed a voiding trial back filling his bladder to the capacity of only 60 mL. Irrigation returned one small clot. Urine is otherwise clear. The patient was allowed to perform a voiding trial and voided entire fill volume of 60 mL without difficulty. EXTREMITIES: Within normal limits. LABORATORY STUDIES: No new laboratories from hematologic or chemistry standpoint since 10/26/2020. ASSESSMENT AND PLAN: 1. Prostate cancer. Current PSA unknown. Last PSA obtained here at [facility] was less than the limit value of 0.02 ng/mL on 01/03/2017. 2. The patient should remain on appropriate surveillance. He is followed by Dr. Miranda. 3. Concerns for urethral stricture. At the present time, the patient does not have concurrent retention evidence instead. He has a small capacity bladder and apparent poor urinary sphincter function. 4. ID concerns. The patient's urine culture is negative at 48 hours. 5. Constipation. Has had a bowel movement and feels much better than he did previously. 6. Hypertension. The patient does report issues with hypertension, is being followed initially by Dr. Tinsley, who is covering for Dr. Cooper. Dr. Cooper has seen and evaluated the patient today. We will make additional recommendations regarding management of hypertension. We believe combination of constipation and bladder spasms from indwelling Brown catheter may have been contributing to the patient's hypertension issues. 7. Radiation cystitis. A long discussion with Dr. Rabago regarding long-term effects of radiation therapy and most likely cause being radiation cystitis in this case since no evidence of infection was recovered. The patient most likely is experiencing hematuria secondary to that. Job ID: [id number]
--- NOTE | 2020-10-28 17:06 | PDOC.CPN ---
- Subjective Date: 10/28/20 Time: 16:54 Interval history: He is doing better. His BP is better controlled. No angina. - Review of Systems General: denies: fever/chills, weight/appetite/sleep changes, night sweats, fatigue Respiratory: denies: cough, congestion, shortness of breath, exercise intolerance Cardiovascular: denies: chest pain, palpitation, edema, paroxysmal nocturnal dyspnea, orthopnea Gastrointestinal: denies: nausea, vomiting, diarrhea, constipation, abd pain, GI bleeding Musculoskeletal: denies: pain, tenderness, stiffness, swelling, ar thritis/arthralgias Neurological: denies: numbness, syncope, seizure, weakness - Objective Allergies/Adverse Reactions: Allergies Allergy/AdvReac Type Severity Reaction Status Date / Time No Known Allergies Allergy Verified 10/26/20 00:01 Visit Medications: Current Medications Acetaminophen (Acetaminophen 325 Mg Tab) 650 mg PO Q4H PRN PRN Reason: Headache/Fever/Mild Pain (1-3) Last Admin: 10/26/20 22:14 Dose: 650 mg Documented by: Acetaminophen (Acetaminophen 650 Mg Suppository) 650 mg [place] Q4H PRN PRN Reason: Headache/Fever/Mild Pain (1-3) Amlodipine Besylate (Amlodipine 10 Mg Tab) 2.5 mg PO DAILY [facility] Last Admin: 10/28/20 09:43 Dose: 2.5 mg Documented by: Atorvastatin Calcium (Atorvastatin Calcium 40 Mg Tab) 40 mg PO QPM [facility] Last Admin: 10/27/20 20:27 Dose: 40 mg Documented by: Carbidopa/Levodopa (Carbidopa/Levodopa 25-250 Mg Tablet) 1 tab PO QID [facility] Last Admin: 10/28/20 13:11 Dose: 1 tab Documented by: Carvedilol (Carvedilol 3.125 Mg Tab) 3.125 mg PO BID[facility] Last Admin: 10/28/20 09:41 Dose: Not Given Documented by: Duloxetine HCl (Duloxetine 60 Mg Cap) 60 mg PO QPM-[facility] Last Admin: 10/27/20 17:17 Dose: 60 mg Documented by: Famotidine (Famotidine 20 Mg Tab) 20 mg PO BID [facility] Last Admin: 10/28/20 09:42 Dose: 20 mg Documented by: Gabapentin (Gabapentin 300 Mg Cap) 600 mg PO BID [facility] Last Admin: 10/28/20 09:42 Dose: 600 mg Documented by: Hydralazine HCl (Hydralazine 20 Mg/Ml Vial) 10 mg SLOW IVP Q4H PRN PRN Reason: Hypertension Last Admin: 10/26/20 12:47 Dose: 10 mg Documented by: Hyoscyamine Sulfate (Hyoscyamine Sulfate Sl 0.125 Mg Tablet) 0.125 mg SL Q6HR [facility] Last Admin: 10/28/20 13:11 Dose: 0.125 mg Documented by: Pramipexole Dihydrochloride (Pramipexole Di-Hcl 0.25 Mg Tab) 0.25 mg PO TID [facility] Last Admin: 10/28/20 09:42 Dose: 0.25 mg Documented by: Sodium Chloride (Flush - Normal Saline 10 Ml Syringe) 10 ml IVF PRN PRN PRN Reason: Saline Flush Sodium Chloride (Flush - Normal Saline 10 Ml Syringe) 10 ml IVF Q12HR PRN PRN Reason: Saline Flush Last Admin: 10/26/20 12:49 Dose: 10 ml Documented by: Tramadol HCl (Tramadol Hcl 50 Mg Tab) 50 mg PO Q6H PRN PRN Reason: Moderate to Severe Pain (6-10) Vital Signs & Weight: Vital Signs Temp Pulse Resp BP BP Pulse Ox 10/28/20 09:43 71 166/79 H 10/28/20 08:00 98.0 F 71 18 156/81 H 94 L Weight 240 lb 3.2 oz - Physical Exam General: alert & oriented x3, no apparent distress HEENT: mucus membranes moist Neck: supple neck Cardiac: regular rate and rhythm Lungs: clear to auscultation Neuro: grossly intact Abdomen: unremarkable Extremities: no edema Skin: clear Musculoskeletal: no pain - Labs Result Diagrams: 10/26/20 05:44 10/26/20 05:44 - Assessment/Plan Assessment/Plan: 1. Labile HTN 2. Orthostatic hypotension 3. Hematuria PLAN: - Continue low dose amlodipine for now. - We have held his losartan in the recent past due to orthostatic vital signs. He actually has a BP od 107/60 when standing up today he dropped about 30 points. Continue current regimen for now. - CV stable and may discharge at any timer from cardiac perspective.
[2020-10-28] MEDS: DULoxetine 60 MG CAP PO SCH (17:08)
[2020-10-28] MEDS: Atorvastatin Calcium 40 MG TAB PO SCH (20:59)
[2020-10-29] MEDS: Hyoscyamine Sulfate SL 0.125 mg Tablet SL SCH ×2 (00:28→05:19)
[2020-10-29] MEDS: Amlodipine 10 MG TAB PO SCH (10:06)
[2020-10-29] MEDS: Carvedilol 3.125 MG TAB PO SCH (10:06)
[2020-10-29] MEDS: Pramipexole Di-HCl 0.25 MG TAB PO SCH (10:06)
[2020-10-29] MEDS: Gabapentin 300 MG CAP PO SCH (10:06)
[2020-10-29] MEDS: Famotidine 20 MG TAB PO SCH (10:07)
[2020-10-29] MEDS: Carbidopa/Levodopa 25-250 mg Tablet PO SCH (10:10)
[2020-10-29 10:19] VITALS: BP 195/95; TEMP 97.8
--- NOTE | 2020-10-29 16:21 | PDOC.HOSPP ---
- Subjective Encounter Date: 10/29/20 Encounter Time: 16:20 Subjective: Mr. Rabago was discharged yesterday but he could not leave. He was cleared for discharge today by his graphic engineer and neurologist. The patient otherwise has done well during this hospitalization. Please refer to the prior discharge summary for further information. - Objective Vital Signs & Weight: Vital Signs (12 hours) Temp Pulse Resp BP BP Pulse Ox 10/29/20 10:06 82 10/29/20 08:00 97.8 F 69 18 195/95 H 134/68 95 Weight Weight 240 lb 3.2 oz I&O: 10/28/20 10/29/20 10/30/20 06:59 06:59 06:59 Intake Total 240 480 Output Total 875 1100 Balance -635 -620 Result Diagrams: 10/26/20 05:44 10/26/20 05:44 Radiology Reviewed by me: Yes EKG Reviewed by me: Yes Hospitalist ROS - Review of Systems All other systems reviewed; all pertinent +/- noted in HPI/Subj Hospitalist Exam Vitals: Vital Signs (12 hours) Temp Pulse Resp BP BP Pulse Ox 10/29/20 10:06 82 10/29/20 08:00 97.8 F 69 18 195/95 H 134/68 95 Weight Weight 240 lb 3.2 oz General Appearance: NAD, awake alert Eye: PERRL, anicteric sclera ENT: normocephalic atraumatic, no oropharyngeal lesions Neck: supple, symmetric, no JVD Heart: RRR, no murmur, no gallops Respiratory: CTAB, no wheezes, no rales Gastrointestinal: soft, non-tender, non-distended, normal bowel sounds Neurological: cranial nerve grossly intact, normal sensation to touch Musculoskeletal: normal tone, normal strength, no muscle wasting Psychiatric: normal affect, normal behavior, A&O x 3 Hosp A/P (1) Hematuria Code(s): R31.9 - HEMATURIA, UNSPECIFIED Status: Acute (2) Urine retention Code(s): R33.9 - RETENTION OF URINE, UNSPECIFIED Status: Acute (3) History of prostate cancer Code(s): Z85.46 - PERSONAL HISTORY OF MALIGNANT NEOPLASM OF PROSTATE Status: Chronic (4) Hypertension Code(s): I10 - ESSENTIAL (PRIMARY) HYPERTENSION Status: Chronic Qualifiers: Hypertension type: essential hypertension Qualified Code(s): I10 - Essential (primary) hypertension (5) Parkinsons disease Code(s): G20 - PARKINSON'S DISEASE Status: Chronic - Plan old records reviewed/req, PT/OT, incentive spirometry, out of bed/ambulate #1. Acute urinary retention The patient currently has Brown catheter in place. This is draining pretty clear urine. Urology plans to do voiding trial while he is hospitalized. I will defer this to them. 2. Hematuria. This appears to have cleared up. 3. History of prostate cancer. He appears to be in remission. 4. Uncontrolled hypertension. We will attempt to obtain his home medications. We need to control his blood pressure. 10/27/20. He became hypotensive earlier today. Was given some IV fluids and he improved.
--- NOTE | 2020-10-30 06:35 | PQF ---
Dear : Tod Ramirez Date 10/30/2020 Please exercise your independent, professional judgment in responding to the clarification form. Clinical indicators are provided on the bottom of this form for your review Can you please further clarify the diagnosis of the patient? Please check appropriate box(es): [ ] Hematuria due to recent prostatectomy [ ] Hematuria is not due to recent prostatectomy [ ] Hematuria due canales catheter [ ] Hematuria due to please specify [ ] Other diagnosis please specify [ x ] Unable to determine Physician Signature: Date/Time: For continuity of documentation, please document condition throughout progress notes and discharge summary. Thank You. To be completed by CDI/Coding staff for physician review: Present Clinical Indicators - Signs / Symptoms / Labs Results and Location in Medical Record [ x ] Urinary retention 2/2 hematuria ED Provider pg.1 [ x ] Canales is not emptying today ED Provider pg.1 [ x ] Hx of remote radical prostatectomy ED Provider pg.1 [ x ] Urinary pretension canales in place ED Provider pg.1 [ x ] Canales catheter does ot seem to be draining properly H and P pg.1 [ x ] Urine retention with hematuria s/p prostatectomy due to prostate cancer in 2004 H and P pg.5 Present Risk Factors Results and Location in Medical Record [ x ] Prostate cancer ED Provider pg.1 [ x ] Prostate surgery ED Provider pg.1 [ x ] Radiation cystitis ED Provider pg.3 [ x ] 80 years old H and P pg.1 Present Treatments Results and Location in Medical Record [ x ] IV Fluids MAR [ x ] Bladder irrigation ED Provider pg.2 [ x ] Morphine 4mg IV MAR [ x ] Levaquin 750mg IV MAR CDS/E Commerce Analyst Signature: Romulo Sales Phone #: ext [phone] Date This is a permanent part of the Medical Record [facility]
== END 2020-10-29 13:05 | disposition home or self-care (01) | DRG 700 ==
LOC: ERS 16:20 → ONC 20:16 → INTOOBSV 20:16 → ERS 22:46 → OBSVTOIN 10-27 15:44
PROVIDERS: ADMIT Student in an Organized Health Care Education/Training Program; ATTEND Hospitalist
DX: N30.41 Irradiation cystitis with hematuria (principal); Z20.822 Contact with and (suspected) exposure to COVID-19; G20 Parkinson's disease; I10 Essential (primary) hypertension; M48.00 Spinal stenosis, site unspecified; E78.5 Hyperlipidemia, unspecified; R31.0 Gross hematuria; K59.00 Constipation, unspecified; F02.80 Dementia in other diseases classified elsewhere, unspecified severity, without behavioral disturbance, psychotic disturbance, mood disturbance, and anxiety; E78.00 Pure hypercholesterolemia, unspecified; I95.1 Orthostatic hypotension; Z85.46 Personal history of malignant neoplasm of prostate; Z79.82 Long term (current) use of aspirin
CPT/HCPCS: 36415; 51702; 70450; 74176; 80048; 80053; 81003; 81015; 82550; 83690; 85025; 85610; 85730; 87086; 93005; 93010; 96365; 96366; 96374; 96375; G0378; J0360; J1956; J2270

== ENCOUNTER 2020-11-23 15:40 | Inpatient (IN) | payer MEDICARE ==
[2020-11-23 19:10] LABS: #Basophils 0.1 thou/uL (0.0-0.2); #Eosinphils 0.2 thou/uL (0.0-0.7); #Lymphocytes 1.4 thou/uL (1.20-3.40); #Monocytes 0.7 thou/uL (0.11-0.59); #Neutrophils 7.4 thou/uL (1.40-6.50); %Basophils 0.9 % (0.0-1.0); %Eosinophils 1.6 % (0.0-10.0); %Lymphocytes 14.4 % (21.0-51.0); %Monocytes 6.9 % (0.0-10.0); %Neutrophils 76.2 % (42.0-75.0); Hemoglobin 14.1 g/dL (14.0-18.0); Mean Corpuscular HGB CONC 34.7 g/dL (32.0-36.0); Mean Corpuscular Hemoglobin 33.4 pg (27.0-31.0); Mean Corpuscular Volume 96.2 fL (78.0-98.0); Platelet Count 200 thou/uL (130-400); Red Blood Cell (RBC) Count 4.24 mill/uL (4.70-6.10); White Blood Cell (WBC) Count 9.7 thou/uL (4.8-10.8)
[2020-11-23 19:40] LABS: ALT (SGPT) 7 U/L (8-55); AST (SGOT) 41 U/L (5-34); Albumin 4.2 g/dL (3.4-4.8); Alkaline Phosphatase 94 U/L (40-110); Anion Gap 17 mmol/L (10-20); BUN (Urea Nitrogen) 24 mg/dL (8.4-25.7); Bilirubin, Total 0.5 mg/dL (0.2-1.2); Calc. Creatinine Clearance 0 mL/min (70-130); Carbon Dioxide 21 mmol/L (23-31); Chloride 107 mmol/L (98-107); Globulin 3.3 g/dL (2.4-3.5); Glucose 104 mg/dL (83-110); Potassium 5.1 mmol/L (3.5-5.1); Protein, Total 7.5 g/dL (5.8-8.1); Sodium 140 mmol/L (136-145)
[2020-11-23 19:40] LABS: Bacteria/HPF 2+ HPF (None Seen); RBC/HPF Greater than 50 HPF (0-3); Squamous Epithelial None Seen HPF (0-3); WBC/HPF None Seen HPF (0-3)
[2020-11-23 19:45] LABS: Clarity Turbid (Clear); Glucose, Urine (Dipstick) Unable to Interpret mg/dL (Negative); Leukocyte Unable to Interpret Leu/uL (Negative); Nitrite Unable to Interpret (Negative); Protein, Urine (Dipstick) 200 mg/dL (Neg-Trace)
[2020-11-23 19:46] LABS: Bilirubin Unable to Interpret (Negative); Blood, Urine Unable to Interpret (Negative); Ketone, Urine Unable to Interpret mg/dL (Negative); Urobilinogen UNABLE TO INTERPRET mg/dL (Less than 2)
[2020-11-23] MEDS ORDERED: Ondansetron ODT 4 MG TAB PO PRN (20:17)
[2020-11-23] MEDS ORDERED: Ondansetron PF 4 MG/2 ML Vial IVP PRN (20:17)
[2020-11-23] MEDS ORDERED: Acetaminophen 325 MG TAB PO PRN (20:17)
[2020-11-23] MEDS ORDERED: hydrALAZINE 20 MG/ML VIAL SLOW IVP SCH (21:30)
[2020-11-23] MEDS: Pramipexole Di-HCl 0.25 MG TAB PO SCH (22:00)
[2020-11-23] MEDS: DULoxetine 60 MG CAP PO SCH (22:00)
[2020-11-23] MEDS: Famotidine 20 MG TAB PO SCH (22:00)
[2020-11-23] MEDS: Gabapentin 300 MG CAP PO SCH (22:00)
[2020-11-23] MEDS: Carbidopa/Levodopa 25-250 mg Tablet PO SCH (22:00)
[2020-11-23] MEDS: Atorvastatin Calcium 20 MG TAB PO SCH (22:00)
[2020-11-23 22:33] VITALS: BMI 31.2
[2020-11-23 23:17] LABS: Hemoglobin 13.7 g/dL (14.0-18.0)
[2020-11-24] MEDS ORDERED: HYDROcodone/Acetaminophen 5/325 mg Tablet PO PRN (00:54)
[2020-11-24 06:54] LABS: #Eosinphils 0.2 thou/uL (0.0-0.7); #Lymphocytes 1.2 thou/uL (1.20-3.40); #Monocytes 0.4 thou/uL (0.11-0.59); #Neutrophils 2.8 thou/uL (1.40-6.50); %Basophils 0.8 % (0.0-1.0); %Lymphocytes 25.9 % (21.0-51.0); %Monocytes 7.9 % (0.0-10.0); %Neutrophils 60.4 % (42.0-75.0); Hemoglobin 12.8 g/dL (14.0-18.0); Mean Corpuscular HGB CONC 34.2 g/dL (32.0-36.0); Mean Corpuscular Hemoglobin 33.2 pg (27.0-31.0); Mean Corpuscular Volume 97.1 fL (78.0-98.0); Mean Platelet Volume 6.9 fL (7.4-10.4); Platelet Count 185 thou/uL (130-400); Red Blood Cell (RBC) Count 3.86 mill/uL (4.70-6.10); White Blood Cell (WBC) Count 4.7 thou/uL (4.8-10.8)
[2020-11-24 07:14] LABS: Anion Gap 12 mmol/L (10-20); BUN (Urea Nitrogen) 21 mg/dL (8.4-25.7); Calc. Creatinine Clearance 117 mL/min (70-130); Calcium 8.8 mg/dL (7.8-10.44); Carbon Dioxide 25 mmol/L (23-31); Chloride 109 mmol/L (98-107); Glucose 136 mg/dL (83-110); Potassium 3.9 mmol/L (3.5-5.1); Sodium 142 mmol/L (136-145)
[2020-11-24] MEDS: Gabapentin 300 MG CAP PO SCH ×3 (08:36→21:54)
[2020-11-24] MEDS: Famotidine 20 MG TAB PO SCH ×2 (08:36→21:53)
[2020-11-24] MEDS: Pramipexole Di-HCl 0.25 MG TAB PO SCH ×3 (08:36→21:53)
[2020-11-24] MEDS: Carbidopa/Levodopa 25-250 mg Tablet PO SCH ×4 (08:37→21:53)
[2020-11-24] MEDS ORDERED: Amlodipine 5 MG TAB PO SCH (09:00)
[2020-11-24 13:01] LABS: SARS-CoV-2 PCR by NAA Not Detected (NotDetected)
[2020-11-24] MEDS ORDERED: Oxybutynin 5 MG TAB PO SCH (14:45)
[2020-11-24] MEDS: hydrALAZINE 20 MG/ML VIAL SLOW IVP PRN (18:08)
[2020-11-24] MEDS: Atorvastatin Calcium 20 MG TAB PO SCH (21:53)
[2020-11-24] MEDS: DULoxetine 60 MG CAP PO SCH (21:54)
[2020-11-25] MEDS: hydrALAZINE 20 MG/ML VIAL SLOW IVP PRN (06:47)
[2020-11-25] MEDS: Famotidine 20 MG TAB PO SCH (08:13)
[2020-11-25] MEDS: Carbidopa/Levodopa 25-250 mg Tablet PO SCH ×2 (08:13→12:30)
[2020-11-25] MEDS: Gabapentin 300 MG CAP PO SCH ×2 (08:13→14:26)
[2020-11-25] MEDS: Pramipexole Di-HCl 0.25 MG TAB PO SCH ×2 (08:13→14:26)
[2020-11-25 12:58] VITALS: BP 134/76
[2020-11-25 13:51] VITALS: TEMP 97.4
== END 2020-11-25 15:25 | disposition home or self-care (01) | DRG 696 ==
LOC: ERS 15:40 → T4-B 16:56 → OBSVTOIN 11-25 09:39
PROVIDERS: ADMIT Internal Medicine; ATTEND Internal Medicine
DX: R31.0 Gross hematuria (principal); I10 Essential (primary) hypertension; E78.5 Hyperlipidemia, unspecified; F32.9 Major depressive disorder, single episode, unspecified; G20 Parkinson's disease; I95.1 Orthostatic hypotension; Z20.822 Contact with and (suspected) exposure to COVID-19; R33.9 Retention of urine, unspecified; Z85.46 Personal history of malignant neoplasm of prostate; Z92.21 Personal history of antineoplastic chemotherapy; Z92.3 Personal history of irradiation
CPT/HCPCS: 36415; 51702; 80048; 80053; 81003; 81015; 85025; 87635; 90471; 90732; 93005; 96374; G0009; G0378; J0360; U0003; U0005

== ENCOUNTER 2021-03-31 13:44 | Outpatient (CLI) | payer MEDICARE | END 2021-03-31 13:45 | disposition home or self-care (01) | LOC: BICRAD 13:44 | PROVIDERS: ATTEND Internal Medicine Cardiovascular Disease | DX: R06.02 Shortness of breath (principal); I70.0 Atherosclerosis of aorta; I77.819 Aortic ectasia, unspecified site | CPT/HCPCS: 71046 ==

== ENCOUNTER 2022-11-16 11:52 | Outpatient (CLI) | payer MEDICARE ==
[2022-11-16 13:14] LABS: #Eosinphils 0.2 10x3/uL (0.0-0.5); #Monocytes 0.5 10x3/uL (0.0-1.1); #Neutrophils 4.7 10x3/uL (1.5-8.4); %Basophils 0.4 % (0.0-2.0); %Eosinophils 2.4 % (0.0-6.0); %Lymphocytes 19.3 % (18.0-47.0); %Monocytes 7.9 % (0.0-10.0); %Neutrophils 69.7 % (40.0-75.0); Hemoglobin 13.4 g/dL (13.5-17.5); Mean Corpuscular HGB CONC 33.3 g/dL (32.0-36.0); Mean Corpuscular Hemoglobin 31.9 pg (27.0-33.0); Mean Corpuscular Volume 95.7 fl (81.2-95.1); Mean Platelet Volume 9.8 fl (7.4-10.4); Platelet Count 218 10x3/uL (150-450); RBC Distribution Width 12.3 % (11.5-14.5); White Blood Cell (WBC) Count 6.7 10x3/uL (3.5-10.5)
[2022-11-16 13:40] LABS: ALT (SGPT) Less than 6 U/L (8-55); AST (SGOT) 17 U/L (5-34); Albumin 4.1 g/dL (3.4-4.8); Alkaline Phosphatase 98 U/L (40-110); Anion Gap 16 mmol/L (10-20); BUN (Urea Nitrogen) 23 mg/dL (8.4-25.7); Bilirubin, Total 0.4 mg/dL (0.2-1.2); Calc. Creatinine Clearance 0 mL/min (70-130); Calcium 9.3 mg/dL (7.8-10.44); Carbon Dioxide 23 mmol/L (23-31); Chloride 108 mmol/L (98-107); Estimated GFR 89; Globulin 2.4 g/dL (2.4-3.5); Glucose 93 mg/dL (83-110); Potassium 4.6 mmol/L (3.5-5.1); Protein, Total 6.5 g/dL (5.8-8.1); Sodium 142 mmol/L (136-145)
== END 2022-11-16 11:53 | disposition home or self-care (01) ==
LOC: LABBT 11:52
PROVIDERS: ATTEND Internal Medicine Cardiovascular Disease
DX: Z01.812 Encounter for preprocedural laboratory examination (principal); R06.02 Shortness of breath
CPT/HCPCS: 80053; 85025

== ENCOUNTER 2022-11-17 06:55 | Day surgery (SDC) | payer MEDICARE ==
[2022-11-16 09:39] VITALS: BMI 30.4
[2022-11-17] MEDS ORDERED: Verapamil 5 MG/2 ML VIAL ONE (07:14)
[2022-11-17] MEDS ORDERED: Nitroglycerin 50 MG/250 ML BOT 250 ML ONE (07:14)
[2022-11-17] MEDS ORDERED: Lidocaine 1% PF 5 ML VIAL ONE (07:14)
[2022-11-17] MEDS ORDERED: Heparin 10,000 UNITS/ 10 ML VIAL ONE (07:14)
[2022-11-17 08:05] LABS: Cardiac Risk 3.2 (Less than 4.5)
[2022-11-17] MEDS ORDERED: Midazolam HCl 2 mg/2 ml Vial ONE (08:12)
[2022-11-17] MEDS ORDERED: FENTANYL 50 MCG/ML 1 ML VIAL ONE (08:12)
== END 2022-11-17 11:40 | disposition home or self-care (01) ==
LOC: CCL 06:55
PROVIDERS: ATTEND Internal Medicine Cardiovascular Disease
PROC: 4A023N7 Measurement of Cardiac Sampling and Pressure, Left Heart, Percutaneous Approach (ICD-10-PCS; principal; 2022-11-17)
PROC: B2111ZZ Fluoroscopy of Multiple Coronary Arteries using Low Osmolar Contrast (ICD-10-PCS; 2022-11-17)
DX: Q24.5 Malformation of coronary vessels (principal); R06.02 Shortness of breath; I48.91 Unspecified atrial fibrillation; I10 Essential (primary) hypertension; I95.1 Orthostatic hypotension; G47.33 Obstructive sleep apnea (adult) (pediatric); J43.9 Emphysema, unspecified; R53.81 Other malaise; Z86.73 Personal history of transient ischemic attack (TIA), and cerebral infarction without residual deficits; Z79.82 Long term (current) use of aspirin; Z79.899 Other long term (current) drug therapy
CPT/HCPCS: 36415; 80061; 93458; 99152; C1769; C1894; J1644; J2250; J3010

== ENCOUNTER 2022-12-14 10:27 | Inpatient (IN) | payer MEDICARE ==
[2022-12-14 11:11] LABS: #Lymphocytes 1.3 thou/uL (1.20-3.40); #Monocytes 0.9 thou/uL (0.11-0.59); #Neutrophils 4.6 thou/uL (1.40-6.50); %Basophils 0.1 % (0.0-1.0); %Eosinophils 0.3 % (0.0-10.0); %Lymphocytes 18.9 % (21.0-51.0); %Neutrophils 67.8 % (42.0-75.0); Hemoglobin 13.5 g/dL (14.0-18.0); Mean Corpuscular HGB CONC 32.2 g/dL (32.0-36.0); Mean Corpuscular Hemoglobin 31.5 pg (27.0-31.0); Mean Corpuscular Volume 97.7 fl (78.0-98.0); Mean Platelet Volume 7.5 fL (7.4-10.4); Platelet Count 168 10x3/uL (130-400); RBC Distribution Width 11.6 % (11.5-14.5); Red Blood Cell (RBC) Count 4.29 mill/uL (4.70-6.10); White Blood Cell (WBC) Count 6.8 10x3/uL (4.8-10.8)
[2022-12-14 11:40] LABS: ALT (SGPT) Less than 7 U/L (8-55); AST (SGOT) 17 U/L (5-34); Albumin 3.7 g/dL (3.4-4.8); Alkaline Phosphatase 77 U/L (40-110); Anion Gap 12 mmol/L (10-20); BUN (Urea Nitrogen) 25 mg/dL (8.4-25.7); Bilirubin, Total 0.5 mg/dL (0.2-1.2); Calc. Creatinine Clearance 0 mL/min (70-130); Calcium 9.2 mg/dL (7.8-10.44); Carbon Dioxide 27 mmol/L (23-31); Chloride 104 mmol/L (98-107); Estimated GFR 90; Globulin 2.6 g/dL (2.4-3.5); Glucose 108 mg/dL (83-110); Potassium 3.5 mmol/L (3.5-5.1); Protein, Total 6.3 g/dL (5.8-8.1); Sodium 139 mmol/L (136-145)
[2022-12-14 15:57] LABS: Troponin I 0.012 ng/mL (< 0.028)
[2022-12-14 16:54] VITALS: BMI 29.4
[2022-12-14] MEDS ORDERED: Acetaminophen 325 MG TAB PO PRN (17:43)
[2022-12-14] MEDS ORDERED: Senokot S 8.6-50 MG TAB PO PRN (17:43)
[2022-12-14] MEDS ORDERED: Calcium Carbonate 500 MG ChewTAB PO PRN (17:43)
[2022-12-14] MEDS ORDERED: Sodium Chloride 0.9% 500 ML IV SCH (17:45)
[2022-12-14] MEDS ORDERED: hydrALAZINE 20 MG/ML VIAL SLOW IVP PRN (17:46)
[2022-12-14] MEDS ORDERED: Albuterol 200 PUFF (6.7GM INHALER) INH PRN (17:47)
[2022-12-14] MEDS ORDERED: Benzonatate 100 MG CAP PO PRN (17:47)
[2022-12-14 18:40] LABS: Lactic Acid 1.9 mmol/L (0.5-2.2)
[2022-12-14 18:45] LABS: CK (CPK) 86 U/L (30-200)
[2022-12-14] MEDS: DULoxetine 60 MG CAP PO SCH (22:05)
[2022-12-14] MEDS: Pramipexole Di-HCl 0.25 MG TAB PO SCH (22:05)
[2022-12-14] MEDS: Atorvastatin Calcium 20 MG TAB PO SCH (22:05)
[2022-12-14 22:52] LABS: Bacteria/HPF None Seen HPF (None Seen); Bilirubin Negative (Negative); Blood, Urine Negative (Negative); CAUTI Indications for Culture Alt mental st,lethar; Clarity Clear (Clear); Glucose, Urine (Dipstick) Normal (Negative); Ketone, Urine Negative (Negative); Leukocyte Negative Leu/uL (Negative); Nitrite Negative (Negative); Protein, Urine (Dipstick) Negative (Neg-Trace); RBC/HPF None Seen HPF (0-3); Specific Gravity, Urine 1.014 (1.002-1.036); Squamous Epithelial None Seen HPF (0-3); Urobilinogen 3 mg/dL (Less than 2); WBC/HPF 0-3 HPF (0-3)
[2022-12-14 22:53] LABS: Urine Culture Reflex No No
[2022-12-15 04:14] LABS: #Eosinphils 0.1 thou/uL (0.0-0.7); #Lymphocytes 1.5 thou/uL (1.20-3.40); #Monocytes 0.7 thou/uL (0.11-0.59); #Neutrophils 3.6 thou/uL (1.40-6.50); %Basophils 0.1 % (0.0-1.0); %Eosinophils 1.2 % (0.0-10.0); %Lymphocytes 25.3 % (21.0-51.0); %Monocytes 12.5 % (0.0-10.0); %Neutrophils 60.9 % (42.0-75.0); Hemoglobin 14.1 g/dL (14.0-18.0); Mean Corpuscular Hemoglobin 32.7 pg (27.0-31.0); Mean Platelet Volume 7.5 fL (7.4-10.4); Platelet Count 180 10x3/uL (130-400); RBC Distribution Width 11.6 % (11.5-14.5); Red Blood Cell (RBC) Count 4.33 mill/uL (4.70-6.10); White Blood Cell (WBC) Count 5.9 10x3/uL (4.8-10.8)
[2022-12-15] MEDS ORDERED: Carbidopa/Levodopa [Rytary Er] 48.75 MG/195 MG Capsule.Er PO SCH ×2 (06:00→13:00)
[2022-12-15] MEDS: Morphine 2 MG/ML VIAL SLOW IVP PRN ×2 (10:15→23:46)
[2022-12-15] MEDS: Pramipexole Di-HCl 0.25 MG TAB PO SCH ×3 (10:20→19:52)
[2022-12-15] MEDS: Cholecalciferol 1,000 UNITS (25 MCG) TAB PO SCH (10:20)
[2022-12-15] MEDS: Multivitamin W/ Minerals 1 TAB PO SCH (10:20)
[2022-12-15] MEDS: Aspirin 81 mg Enteric Coated Tablet PO SCH (10:21)
[2022-12-15] MEDS: Fludrocortisone Acetate 0.1 MG TAB PO SCH (10:21)
[2022-12-15] MEDS: Metoprolol Tartrate 25 MG TAB PO SCH ×2 (10:23→19:53)
[2022-12-15] MEDS: Carbidopa/Levodopa [Rytary Er] 48.75 MG/195 MG Capsule.Er PO SCH ×2 (16:30→19:54)
[2022-12-15] MEDS: DULoxetine 60 MG CAP PO SCH (19:53)
[2022-12-15] MEDS: Benzonatate 100 MG CAP PO PRN (19:53)
[2022-12-15] MEDS: Atorvastatin Calcium 20 MG TAB PO SCH (19:53)
[2022-12-16] MEDS ORDERED: Carbidopa/Levodopa 25-250 mg Tablet PO SCH (03:00)
[2022-12-16] MEDS: Morphine 2 MG/ML VIAL SLOW IVP PRN ×2 (03:57→08:41)
[2022-12-16] MEDS: CARBIDOPA PO SCH (03:58)
[2022-12-16] MEDS: LEVODOPA PO SCH (03:58)
[2022-12-16] MEDS: Pramipexole Di-HCl 0.25 MG TAB PO SCH ×3 (08:42→21:03)
[2022-12-16] MEDS: Multivitamin W/ Minerals 1 TAB PO SCH (08:42)
[2022-12-16] MEDS: Metoprolol Tartrate 25 MG TAB PO SCH (08:42)
[2022-12-16] MEDS: Aspirin 81 mg Enteric Coated Tablet PO SCH (08:42)
[2022-12-16] MEDS: Fludrocortisone Acetate 0.1 MG TAB PO SCH (08:42)
[2022-12-16] MEDS: Cholecalciferol 1,000 UNITS (25 MCG) TAB PO SCH (08:42)
[2022-12-16] MEDS: Carbidopa/Levodopa [Rytary Er] 48.75 MG/195 MG Capsule.Er PO SCH ×4 (08:54→21:05)
[2022-12-16] MEDS ORDERED: HYDROcodone/Acetaminophen 5/325 mg Tablet PO PRN (09:28)
[2022-12-16] MEDS ORDERED: Gabapentin 300 MG CAP PO SCH (09:30)
[2022-12-16] MEDS ORDERED: Lidocaine 4% Patch TD SCH ×3 (09:45→16:45)
[2022-12-16] MEDS ORDERED: Non-Formulary Item 1 EACH (Gabapentin [Gabapentin] 600 MG Tablet) PO SCH (15:00)
[2022-12-16] MEDS ORDERED: Ketorolac Tromethamine 30 MG/ML VIAL IVP PRN (16:24)
[2022-12-16] MEDS: Gabapentin 300 MG CAP PO SCH ×2 (16:28→21:01)
[2022-12-16] MEDS: Sodium Chloride 0.9% 1,000 ML IV SCH (17:58)
[2022-12-16 18:32] LABS: Base Excess (BEa) -1.4 mEq/L (-2.0 to +3.0); CO2 Tension 37.8 mmHg (35.0-45.0); Calcium, Ionized (arterial) 1.19 mmol/L (1.12-1.30); Carboxyhemoglobin (COHb) 1.2 gm% (0.0-3.0); Hemoglobin (Hb) 13.9 g/dL (14.0-18.0); O2 Tension (PaO2), arterial 67.1 mmHg (> 60.0); Potassium - ABG Lab 3.74 mmol/L (3.70-5.30)
[2022-12-16 18:35] LABS: Puncture Site LRA
[2022-12-16] MEDS ORDERED: Transdermal Patch Removal TOP SCH (21:00)
[2022-12-16] MEDS: DULoxetine 60 MG CAP PO SCH (21:02)
[2022-12-16] MEDS: Atorvastatin Calcium 20 MG TAB PO SCH (21:03)
[2022-12-16] MEDS: traZODone HCl 50 MG TAB PO SCH (21:03)
[2022-12-17] MEDS: CARBIDOPA PO SCH (03:22)
[2022-12-17] MEDS: LEVODOPA PO SCH (03:22)
[2022-12-17 04:22] LABS: #Eosinphils 0.2 thou/uL (0.0-0.7); #Lymphocytes 1.4 thou/uL (1.20-3.40); #Monocytes 0.6 thou/uL (0.11-0.59); #Neutrophils 4.2 thou/uL (1.40-6.50); %Basophils 0.1 % (0.0-1.0); %Eosinophils 3.4 % (0.0-10.0); %Monocytes 9.8 % (0.0-10.0); %Neutrophils 65.7 % (42.0-75.0); Mean Corpuscular Hemoglobin 33.2 pg (27.0-31.0); Mean Corpuscular Volume 97.6 fl (78.0-98.0); Mean Platelet Volume 7.4 fL (7.4-10.4); Platelet Count 164 10x3/uL (130-400); RBC Distribution Width 11.5 % (11.5-14.5); Red Blood Cell (RBC) Count 3.92 mill/uL (4.70-6.10); White Blood Cell (WBC) Count 6.5 10x3/uL (4.8-10.8)
[2022-12-17 04:42] LABS: Anion Gap 10 mmol/L (10-20); BUN (Urea Nitrogen) 34 mg/dL (8.4-25.7); Calc. Creatinine Clearance 77 mL/min (70-130); Calcium 8.7 mg/dL (7.8-10.44); Carbon Dioxide 26 mmol/L (23-31); Chloride 107 mmol/L (98-107); Estimated GFR 67; Glucose 117 mg/dL (83-110); Potassium 3.7 mmol/L (3.5-5.1); Sodium 139 mmol/L (136-145)
[2022-12-17] MEDS: Sodium Chloride 0.9% 1,000 ML IV SCH (06:19)
[2022-12-17] MEDS: Transdermal Patch Removal TOP SCH (06:20)
[2022-12-17] MEDS: Carbidopa/Levodopa [Rytary Er] 48.75 MG/195 MG Capsule.Er PO SCH ×4 (08:53→20:19)
[2022-12-17] MEDS: Docusate 100 MG CAP PO SCH (08:54)
[2022-12-17] MEDS: Aspirin 81 mg Enteric Coated Tablet PO SCH (08:54)
[2022-12-17] MEDS: Multivitamin W/ Minerals 1 TAB PO SCH (08:54)
[2022-12-17] MEDS: Pramipexole Di-HCl 0.25 MG TAB PO SCH ×3 (08:55→20:20)
[2022-12-17] MEDS: Fludrocortisone Acetate 0.1 MG TAB PO SCH (08:55)
[2022-12-17] MEDS: Gabapentin 300 MG CAP PO SCH ×3 (08:55→20:21)
[2022-12-17] MEDS: Cholecalciferol 1,000 UNITS (25 MCG) TAB PO SCH (08:55)
[2022-12-17] MEDS ORDERED: Lidocaine 4% Patch TD SCH (09:00)
[2022-12-17] MEDS ORDERED: DOCUSATE SODIUM 250 MG PO SCH (09:00)
[2022-12-17] MEDS: Lidocaine 4% Patch TD SCH (16:07)
[2022-12-17] MEDS: DULoxetine 60 MG CAP PO SCH (20:20)
[2022-12-17] MEDS: traZODone HCl 50 MG TAB PO SCH (20:20)
[2022-12-17] MEDS: Atorvastatin Calcium 20 MG TAB PO SCH (20:20)
[2022-12-18] MEDS: LEVODOPA PO SCH (03:18)
[2022-12-18] MEDS: CARBIDOPA PO SCH (03:18)
[2022-12-18] MEDS: Carbidopa/Levodopa [Rytary Er] 48.75 MG/195 MG Capsule.Er PO SCH ×4 (06:15→20:52)
[2022-12-18] MEDS: Transdermal Patch Removal TOP SCH (06:15)
[2022-12-18] MEDS: Docusate 100 MG CAP PO SCH (08:19)
[2022-12-18] MEDS: Aspirin 81 mg Enteric Coated Tablet PO SCH (08:19)
[2022-12-18] MEDS: Pramipexole Di-HCl 0.25 MG TAB PO SCH ×3 (08:19→20:47)
[2022-12-18] MEDS: Gabapentin 300 MG CAP PO SCH ×3 (08:19→20:46)
[2022-12-18] MEDS: Multivitamin W/ Minerals 1 TAB PO SCH (08:19)
[2022-12-18] MEDS: Cholecalciferol 1,000 UNITS (25 MCG) TAB PO SCH (08:20)
[2022-12-18] MEDS: Fludrocortisone Acetate 0.1 MG TAB PO SCH (08:20)
[2022-12-18] MEDS: Lidocaine 4% Patch TD SCH (16:35)
[2022-12-18] MEDS: DULoxetine 60 MG CAP PO SCH (20:46)
[2022-12-18] MEDS: traZODone HCl 50 MG TAB PO SCH (20:47)
[2022-12-18] MEDS: Atorvastatin Calcium 20 MG TAB PO SCH (20:47)
[2022-12-18] MEDS: Benzonatate 100 MG CAP PO PRN (20:47)
[2022-12-19] MEDS: LEVODOPA PO SCH (04:00)
[2022-12-19] MEDS: CARBIDOPA PO SCH (04:00)
[2022-12-19 04:58] LABS: #Eosinphils 0.1 thou/uL (0.0-0.7); #Lymphocytes 1.2 thou/uL (1.20-3.40); #Monocytes 0.4 thou/uL (0.11-0.59); #Neutrophils 2.2 thou/uL (1.40-6.50); %Basophils 0.2 % (0.0-1.0); %Eosinophils 3.6 % (0.0-10.0); %Lymphocytes 30.2 % (21.0-51.0); %Monocytes 10.9 % (0.0-10.0); Hemoglobin 13.1 g/dL (14.0-18.0); Mean Corpuscular HGB CONC 32.3 g/dL (32.0-36.0); Mean Corpuscular Hemoglobin 31.5 pg (27.0-31.0); Mean Corpuscular Volume 97.5 fl (78.0-98.0); Mean Platelet Volume 7.6 fL (7.4-10.4); Platelet Count 192 10x3/uL (130-400); RBC Distribution Width 11.5 % (11.5-14.5); Red Blood Cell (RBC) Count 4.16 mill/uL (4.70-6.10); White Blood Cell (WBC) Count 4.1 10x3/uL (4.8-10.8)
[2022-12-19 05:20] LABS: Anion Gap 13 mmol/L (10-20); BUN (Urea Nitrogen) 14 mg/dL (8.4-25.7); Calc. Creatinine Clearance 123 mL/min (70-130); Calcium 8.8 mg/dL (7.8-10.44); Carbon Dioxide 25 mmol/L (23-31); Chloride 107 mmol/L (98-107); Estimated GFR 93; Glucose 105 mg/dL (83-110); Potassium 3.6 mmol/L (3.5-5.1); Sodium 141 mmol/L (136-145)
[2022-12-19] MEDS: Transdermal Patch Removal TOP SCH (05:49)
[2022-12-19] MEDS: Fludrocortisone Acetate 0.1 MG TAB PO SCH (08:37)
[2022-12-19] MEDS: Aspirin 81 mg Enteric Coated Tablet PO SCH (08:37)
[2022-12-19] MEDS: Gabapentin 300 MG CAP PO SCH (08:37)
[2022-12-19] MEDS: Pramipexole Di-HCl 0.25 MG TAB PO SCH (08:37)
[2022-12-19] MEDS: Docusate 100 MG CAP PO SCH (08:37)
[2022-12-19] MEDS: Carbidopa/Levodopa [Rytary Er] 48.75 MG/195 MG Capsule.Er PO SCH ×2 (08:37→11:31)
[2022-12-19] MEDS: Multivitamin W/ Minerals 1 TAB PO SCH (08:38)
[2022-12-19] MEDS: Cholecalciferol 1,000 UNITS (25 MCG) TAB PO SCH (11:31)
[2022-12-19 11:44] VITALS: TEMP 97.8
[2022-12-19 12:02] VITALS: BP 114/56
== END 2022-12-19 14:28 | disposition home health service (06) | DRG 640 ==
LOC: ERS 10:27 → 2NO 16:38 → OBSVTOIN 12-15 14:46 → UNDODISIN 12-19 13:37
PROVIDERS: ADMIT Family Medicine; ATTEND Family Medicine
DX: E86.0 Dehydration (principal); G93.41 Metabolic encephalopathy; U07.1 COVID-19; I95.1 Orthostatic hypotension; I10 Essential (primary) hypertension; E78.5 Hyperlipidemia, unspecified; G20 Parkinson's disease; M48.00 Spinal stenosis, site unspecified; R00.1 Bradycardia, unspecified; Z85.46 Personal history of malignant neoplasm of prostate; Z86.16 Personal history of COVID-19; Z79.899 Other long term (current) drug therapy
CPT/HCPCS: 36415; 36416; 36600; 70450; 70551; 71045; 80048; 80053; 81001; 82550; 82805; 83605; 83735; 84484; 85025; 85379; 86140; 87040; 93005; 94660; 96372; 96374; G0378; J0360; J1650; J1885; J2272; J7050